=== PATIENT | female | born 2000 | race Caucasian/White ===

== ENCOUNTER 2024-12-10 10:05 | Outpatient (AMB) | payer OTHER, SELFPAY ==
--- NOTE | 2024-12-10 10:12 | A.OFFPC_ITS ---
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 Intake Note: New patient visit Combustion Engineer Required: No Allergies amoxicillin Allergy (Unknown, Verified 12/10/24 10:18) Hives cefprozil Allergy (Unknown, Verified 12/10/24 10:18) Hives Medication List - Last Reconciled 12/10/24 by Lanny Collins PA-C ondansetron mg PO topiramate mg PO Tobacco use date assessed: 12/10/24 Dental Screening Dental Screen Date: 12/10/24 Did you have a dental visit in the last 12 months?: Yes Did you have a dental problem in the last 6 months where you did not have access to dental care?: No Was dental information given to patient?: Patient has dentist HPI 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 neuro: She reports a history of chronic migraines, experiencing significant episodes over the past 11 years. The migraines are described as severe, with symptoms including sensitivity to light, sound, and smell, accompanied by stabbing pain, swishing in the ears, dizziness, nausea, and visual disturbances such as blurry vision. These symptoms have notably impacted her quality of life. The patient recently underwent an evaluation for Idiopathic Intracranial Hypertension (IIH) which included a spinal tap that returned negative results. However, the cerebrospinal fluid analysis was complicated by traumatic tap resulting in blood-tinged samples and displayed elevated protein levels and whi te blood cell counts. MRI and MRV indicated narrowing in the right venous sinuses and widening on the left but ruled out dural venous sinus thrombosis. Current treatment includes Topamax and Zofran as needed for nausea. The patient was evaluated for Multiple Sclerosis (MS) previously due to loss of vision in the left eye, but MRI results were negative. PULM: Additionally, the patient was diagnosed with sleep apnea and prescribed CPAP therapy, which began at the start of the current month. This diagnosis emerged after previous attempts to establish a link between sleep apnea and migraine occurrences. The patient reports consistent utilization of the CPAP machine. 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 psych: Furthermore, she has a history of major depressive disorder diagnosed three years prior, attributed to stressors but notes no current depressive symptoms. Health Maintenance - Bloodwork monitoring: Ordered comprehe nsive blood panel including CBC, liver function, kidney function, electrolytes, blood sugar, ferritin, iron profile, hemoglobin A1c, cholesterol, Lyme disease serology, magnesium, thyroid function tests, B12, folate, and urinalysis. - Continues with CPAP therapy for sleep apnea. - Referred to [facility] for s kin check due to presence of moles and history of skin yeast infection. - Routine dermatological evaluation for potential skin cancer risk given fair complexion and history of family cancer. Social History - Lives with parents. 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 - No smoking, alcohol, or substance use reported. Review of Systems - Neurological: Reports dizziness. - Gastrointestinal: Reports nausea. Physical Exam General: Well developed, well nourished, in no acute distress. Appears stated age. Cardiac: RRR, no murmurs Lungs: clear, equal breath sounds Abdomen: soft, nontender, no CVA tenderness Extremities: no edema Neuro: alert, oriented x3, mood appropriate. Noted history of migraines and vertigo-like dizziness. Plan - Continue with prescribed migraine jocelyn gement under neurology supervision. - Await further interpretation and commu nication of lumbar puncture results from neurology. - Continue CPAP usage with regular follo w-up to ensure efficacy for sleep apnea management. - Maintain follow-ups for management of iron deficiency anemia and monitor for any changes in symptoms or routine bloodwork evidence. - Follow up in six months for full physi galdino examination, with review of current laboratory results. - Referral made to [facility] for evaluation of skin moles and to ascertain appropriate dermatological care. - Maintain awareness for potential recur rence of depressive symptoms and intervene as needed. [facility] Medical History (Updated 12/10/24 @ 10:54 by Lanny Collins PA-C) History of depression Surgical History (Updated 12/10/24 @ 10:27 by Sweetie Gtz CMA) No pertinent past surgical history Family History (Updated 12/10/24 @ 10:21 by Sweetie Gtz CMA) Paternal Grandmother Breast cancer Maternal Grandmother Breast cancer Maternal Grandfather Lung cancer Social History (Updated 12/10/24 @ 10:20 by Sweetie Gtz CMA) Housing: House Alcohol intake: current Comment: rarely Patient Tobacco Use Status: Never used Tobacco e-Cigarette/Vaping Use: Never Used Second Hand Smoke Exposure: No service: No Current occupational status: employed 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 1. Little interest or pleasure in doing things: not at all 2. Feeling down, depressed, or hopeless: not at all 3. Trouble falling or staying asleep, or sleeping too much: not at all 4. Feeling tired or having little energy: not at all 5. Poor appetite or overeating: not at all 6. Feeling bad about yourself - or that you are a failure or have let yourself or your family down: not at all 7. Trouble concentrating on things, such as reading the newspaper or watching television: not at all 8. Moving or speaking so slowly that other people could have noticed. Or the opposite - being so fidgety or restless that you have been moving around a lot more than usual: not at all 9. Thoughts that you would be better off or of hurting yourself in some way: not at all Total score: 0 Depression Screening Interpretation: Negative Depression Screening Done: Yes 00872 - PHQ-9 Billing: Yes Source: Developed by Drs. Dylan Bonilla, Stacey Maradiaga, Reynaldo Correa and colleagues, with an educational myrna from [email or web address]. Thrive Questionnaire Date Thrive assessed: 12/07/24 I am a: Patient What is your living situation today?: I have a steady place to live Within the past 12 months, did the food you bought not last and you didn't have the money to get more?: Never true Within the past 12 months, did you worry whether your food would run out before you got money to buy more?: Never true Do you have trouble paying for medicines?: No Do you have trouble getting transportation to medical appointments?: No Do you have trouble paying your heating and electricity bill?: No Do you have trouble taking care of your child, family member or friend?: No Do you have trouble with day-to-day activities such as bathing, preparing meals, shopping, managing finances, etc.?: No Are you currently unemployed and looking for a job?: No Are you interested in more education?: No Please select the resources that you would like help with: None Currently or been in a relationship where the following occur: No concerns reported THRIVE Score: 0 AUDIT C Alcohol Use Questionnaire (AUDIT-C) 1. How often do you have a drink containing alcohol?: Monthly or less 2. How many drinks containing alcohol do you have on a typical day when you are drinking?: 1 or 2 3. How often do you have six or more drinks on one occasion?: Never Total Score: 1 Score Reviewed/Action Taken: Yes EDDA-7 AMB Questionnaire EDDA-7 Date EDDA - 7 assessed: 12/10/24 Feeling nervous, anxious, or on edge: 0 = Not at all Not being able to stop or control worryin = Not at all Worrying too much about different things: 0 = Not at all Trouble relaxin = Not at all Being so restless that it is hard to sit still: 0 = Not at all Becoming easily annoyed or irritable: 0 = Not at all Feeling afraid as if something awful might happen: 0 = Not at all Total EDDA-7 score (0-4 normal; 5-9 mild; 10-14 moderate; 15-21 severe): 0 Source: Developed by Drs. Dylan Bonilla, Stacey Maradiaga, Reynaldo Correa and colleagues, with an educational myrna from [email or web address]. EDDA-7 Assessment Billing EDDA-7 Assessment Tool: EDDA-7 Assessment 25809 Physical exam (Primary Care) Vital Signs: Last Vital Signs Pulse 89 12/10/24 10:21 Resp 16 12/10/24 10:21 BP 98/68 12/10/24 10:21 Pulse Ox 99 12/10/24 10:21 Oxygen Delivery Method Room Air 12/10/24 10:21 BMI result Body Mass Index 47.2 Tobacco/Smoking Status: Tobacco use Status Tobacco use date assessed 12/10/24 12/10/24 10:26 Patient Tobacco Use Status Never used Tobacco 12/10/24 10:26 e-Cigarette/Vaping Use Never Used 12/10/24 10:26 PHQ-9: PHQ-9 Score PHQ-9: Total score 0 12/10/24 10:47 Depression Screening Interpretation: Negative Thrive Assessment: Date of Thrive Assessment Date Thrive assessed 12/07/24 12/10/24 10:16 Currently or been in a relationship where the following occur: No concerns reported Coding Level of Care Code New Pt Level 4 (42254) Diagnoses Migraine G43.909 ROSE MARIE (iron deficiency anemia) D50.9 ALLISON on CPAP G47.33 Numerous moles D22.9 Additional Codes EDDA-7 Assessment Billing - EDDA-7 Assessment Tool: EDDA-7 Assessment 09010 ([id number]) PHQ-9 - 52328 - PHQ-9 Billing: Yes ([id number]) Assessment & Plan Assessment & Plan (1) Migraine: Code(s): G43.909 - Migraine, unspecified, not intractable, without status migrainosus Category: Medical (2) ROSE MARIE (iron deficiency anemia): Code(s): D50.9 - Iron deficiency anemia, unspecified Category: Medical (3) ALLISON on CPAP: Code(s): G47.33 - Obstructive sleep apnea (adult) (pediatric) Category: Medical (4) Numerous moles: Code(s): D22.9 - Melanocytic nevi, unspecified Category: Medical Plan: . Plan . Orders: Orders Complete Blood Count Auto Diff Today D50.9 - Iron deficiency anemia, unspecified, G43.909 - Migraine, unspecified, not intractable, without status migrainosus, G47.33 - Obstructive sleep apnea (adult) (pediatric) Comprehensive Soso. Panel Fast Today D50.9 - Iron deficiency anemia, unspecified, G43.909 - Migraine, unspecified, not intractable, without status migrainosus, G47.33 - Obstructive sleep apnea (adult) (pediatric) TSH reflex Free T4 Today D50.9 - Iron deficiency anemia, unspecified, G43.909 - Migraine, unspecified, not intractable, without status migrainosus, G47.33 - Obstructive sleep apnea (adult) (pediatric) Vitamin B12 and Folate Today D50.9 - Iron deficiency anemia, unspecified, G43.909 - Migraine, unspecified, not intractable, without status migrainosus, G47.33 - Obstructive sleep apnea (adult) (pediatric) IRON PROFILE Today D50.9 - Iron deficiency anemia, unspecified, G43.909 - Farhad dakota, unspecified, not intractable, without status migrainosus, G47.33 - Obstructive sleep apnea (adult) (pediatric) Ferritin Today D50.9 - Iron deficiency anemia, unspecified, G43.909 - Migraine, unspecified, not intractable, without status migrainosus, G47.33 - Obstructive sleep apnea (adult) (pediatric) Hemoglobin A1c Today R73.01 - Impaired fasting glucose Lipid Panel Today D50.9 - Iron deficiency anemia, unspecified, G43.909 - Migraine, unspecified, not intractable, without status migrainosus, G47.33 - Obstructive sleep apnea (adult) (pediatric) Magnesium Today D50.9 - Iron deficiency anemia, unspecified, G43.909 - Migraine, unspecified, not intractable, without status migrainosus, G47.33 - Obstructive sleep apnea (adult) (pediatric) Lyme IgG/IgM w/reflex to WB Today D50.9 - Iron deficiency anemia, unspecified, G43.909 - Migraine, unspecified, not intractable, without status migrainosus, G47.33 - Obstructive sleep apnea (adult) (pediatric) Microalbumin, Random (w Creat) Today D50.9 - Iron deficiency anemia, unspecifi ed, G43.909 - Migraine, unspecified, not intractable, without status migrainosus, G47.33 - Obstructive sleep apnea (adult) (pediatric) Referrals Dermatology Referral D22.9 - Melanocytic nevi, unspecified
[2024-12-10 10:21] VITALS: BP 98/68; PULSE 89; RESP 16; O2SAT 99; BMI 47.2
--- OUTSIDE RECORDS SUMMARY | 2024-12-10 11:38 | XMS_ITS | Continuity of Care Document ---
Author Organization [facility] Address [address] [facility] [facility], [address] Floor, [address] [place] [id number] Care Team Providers Care Instrument Checker Name Role Phone Lanny Gold B Primary Care Physician [phone] Encounter [facility] Date(s): 10/29/24 - 11/28/24 [facility] [address] [place] [address] [address] Floor, [address] [place] [id number] Encounter Type: Triage Allergies, Adverse Reactions, Alerts Substance Criticality Severity Reaction Reaction Severity Status amoxicillin hives Active Cefzil hives Active Seafood Active Latex Active Immunizations Given and Recorded Vaccine Date Status Refusal Reason SARS-CoV-2 (COVID-19) mRNA-1273 vaccine 11/03/20 R ecorded SARS-CoV-2 (COVID-19) mRNA-1273 vaccine 10/06/20 R ecorded Flu Vaccine 08/02/20 Recorded tetanus/diphtheria/pertussis, acel(Tdap) 05/16/20 Given Influenza Virus Vaccine (oldterm) 06/04/19 Recorde d meningococcal group B vaccine 1 10/31/18 Given meningococcal group B vaccine 2 05/13/18 Given influenza virus vaccine, inactivated 07/13/18 Bunny rded Meningococcal Conjugate Vaccine 3 03/20/16 Given Meningococcal Conjugate Vaccine 4 02/06/11 Given influenza virus vaccine, live 5 09/12/12 Given influenza virus vaccine, live 6 08/14/10 Given Hepatitis A Pediatric Vaccine 7 02/07/12 Given Hepatitis A Vaccine (oldterm) 8 02/06/11 Given Adacel (Tdap) (oldterm) 9 02/06/11 Given Influenza Live (intranasal) (oldterm) 07/28/09 Giv en Varicella Virus Vaccine 10 02/03/08 Given Varicella Virus Vaccine 11 01/30/01 Given Poliovirus Vaccine, Inactivated 12 12/29/04 Given Poliovirus Vaccine, Inactivated 13 00 Given Poliovirus Vaccine, Inactivated 14 00 Given Poliovirus Vaccine, Inactivated 15 00 Given Diphth/Pertussis,Acel/Tetanus (oldterm) 16 12/29/04 Given Diphth/Pertussis,Acel/Tetanus (oldterm) 17 04/28/01 Given Diphth/Pertussis,Acel/Tetanus (oldterm) 18 00 Given Diphth/Pertussis,Acel/Tetanus (oldterm) 19 00 Given Diphth/Pertussis,Acel/Tetanus (oldterm) 20 00 Given Measles/Mumps/Rubella Virus Vaccine 21 01/28/04 Gi andreia Measles/Mumps/Rubella Virus Vaccine 22 01/30/01 Gi andreia Haemophilus B Conj Vaccine (oldterm) 23 04/28/01 G iven Haemophilus B Conj Vaccine (oldterm) 24 00 G iven Haemophilus B Conj Vaccine (oldterm) 25 00 G iven Haemophilus B Conj Vaccine (oldterm) 26 00 G iven Prevnar Inj (oldterm) 27 01/30/01 Given Prevnar Inj (oldterm) 28 00 Given Prevnar Inj (oldterm) 29 00 Given Prevnar Inj (oldterm) 30 00 Given Hepatitis B Vaccine (old term) 31 00 Given Hepatitis B Vaccine (old term) 32 00 Given Hepatitis B Vaccine (old term) 33 00 Given 1Result Comment: [10/31/2018] Marina Vogel MA 2Result Comment: [05/13/2018] Dr. Moeller 3Result Comment: [03/20/2016] Nataliya Agee 4Admin Note: vis given 11/10/07 5Admin Note: private vis given 2011 screening questions negative 6Admin Note: VIS 05/23/10 FLUMIST 7Admin Note: vis given. 08/07/2011 8Admin Note: vis given 04/30/07 9Admin Note: vis given 04/24/06 10Admin Note: [facility] 11Admin Note: [facility] 12Admin Note: [facility] 13Admin Note: [facility] 14Admin Note: [facility] 15Admin Note: [facility] 16Admin Note: [facility] 17Admin Note: [facility] 18Admin Note: [facility] 19Admin Note: [facility] 20Admin Note: [facility] 21Admin Note: [facility] 22Admin Note: [facility] 23Admin Note: [facility] 24Admin Note: [facility] 25Admin Note: [facility] 26Admin Note: [facility] 27Admin Note: [facility] 28Admin Note: [facility] 29Admin Note: [facility] 30Admin Note: [facility] 31Admin Note: [facility] 32Admin Note: [facility] 33Admin Note: [facility] Medications eletriptan 40 mg oral tablet 1 tablet = 40 mg, By Mouth, Once, PRN for migraine headache, # 9 tablet, 3 Refills, Soft Stop, 09/18/23 4:07:00 PM EST, Tablet, [id number], Partial fill upon patient request if the prescription is for a schedule II opioid drug., 167, cm, 07/03/23 13:15:00 EDT, Height, 123, kg, 07/03/23 13:15:00 EDT, Dry Weight Start Date: 09/18/23 Status: Ordered Quantity: 9.0 Unit: tablet Repeat number: 4 EpiPen 2-Mathieu 0.3 mg injectable kit = 0.3 mg, Intramuscular, Once, 0 Refills, Maintenance, 02/12/22 9:46:00 AM EDT, Partial fill upon patient request if the prescription is for a schedule II opioid drug. Start Date: 02/12/22 Status: Ordered Repeat number: 1 hydrOXYzine hydrochloride 25 mg oral tablet TAKE 1 TABLET BY MOUTH 4X/DAY FOR 10 DAYS NEEDED FOR ANXIETY (15 TO 30 MINUTES PRIOR TO BEDTIME) Start Date: 11/29/22 Status: Ordered Repeat number: 1 ibuprofen 800 mg oral tablet 800 mg, 1, tablet, By Mouth, 3 times a day, PRN, # 30 tablet, Refills 0, Maintenance, for pain, 09/06/20 12:57:00 PM EST, Partial fill upon patient request Start Date: 09/06/20 Status: Ordered Quantity: 30.0 Unit: tablet Repeat number: 1 Liletta 52 mg intrauterine device 1 each = 52 mg, Once, 0 Refills, Maintenance, 02/14/24 11:18:00 AM EDT, Partial fill upon patient request if the prescription is for a schedule II opioid drug. Start Date: 02/14/24 Status: Ordered Repeat number: 1 ondansetron 4 mg oral tablet, disintegrating 1 tablet, By Mouth, Every 8 hours, PRN NEEDED FOR NAUSEA AND VOMITING, # 12 tablet, 2 Refills, Maintenance, 07/30/24 11:36:00 AM EDT, [id number], 167, cm, 07/30/24 10:43:00 EDT, Height, 125.8, kg, 07/30/24 10:43:00 EDT, Dry Weight Start Date: 07/30/24 Status: Ordered Quantity: 12.0 Unit: tablet Repeat number: 3 phentermine 15 mg oral capsule 0 Refills, Maintenance, 02/06/24 10:02:00 AM EDT, Partial fill upon patient request if the prescription is for a schedule II opioid drug. Start Date: 02/06/24 Status: Ordered Repeat number: 1 topiramate 25 mg oral tablet See Instructions, Take 1 tablet By Mouth Daily at bedtime for 1 week, then 1 tablet By Mouth twice daily for 1 week, then 1 tablet By Mouth Daily in the morning and 2 at bedtime for 1 week, then 2 tablets By Mouth twice daily, # 120 tablet, 0 Refills, Maintenance, 07/30/24 4:46:00 PM EDT, [facility] #[id number], Partial fill upon patient request if the prescription is for a schedule II opioid drug., 167, cm, 07/30/24 10:43:00 EDT, Height, 125.8, kg, 07/30/24 10:43:00 EDT, Dry Weight Start Date: 07/30/24 Status: Ordered Quantity: 120.0 Unit: tablet Repeat number: 1 topiramate 50 mg oral tablet 1 tablet = 50 mg, By Mouth, 2 times a day, # 60 tablet, 5 Refills, Maintenance, 08/31/24 8:06:00 PMEST, Tablet, [facility] #[id number], Partial fill upon patient request if the prescription is for a schedule II opioid drug., 167, cm, 07/30/24 10:43:00 EDT, Height, 125.8, kg, 07/30/24 10:43:00 EDT, DryWeight Start Date: 08/31/24 Status: Ordered Quantity: 60.0 Unit: tablet Repeat number: 6 topiramate 50 mg oral tablet 0 Refills, Maintenance, 02/06/24 10:02:00 AM EDT, Partial fill upon patient request if the prescription is for a schedule II opioid drug. Start Date: 02/06/24 Status: Ordered Repeat number: 1 Wegovy (1 mg dose) subcutaneous solution 0 Refills, Maintenance, 07/30/24 10:53:00 AM EDT, Partial fill upon patient request if the prescription is for a schedule II opioid drug. Start Date: 07/30/24 Status: Ordered Repeat number: 1 Problem List Condition Confirmation Course Effective Dates Status Health St atus Informant Chronic headache Confirmed Active Concussion Confirmed 08/14/18 Active BMI, pediatric > 99% for age Confirmed Active Severe obesity Confirmed Active Social History Social History Type Response Smoking Status Never (less than 100 in lifetime) entered on: 05/20/21 Sex Sex Representation Female (finding) Patient Care team information Care Team Personnel Name: Marina Moeller MD Position: [facility] Physician - Pediatrics Member Role: Lifetime Consulting Physician Address: [address] [facility] [place] [address]- Telecom: Name: Leonel Nichols MD Position: [facility] Physician - Pediatrics Member Role: Lifetime Consulting Physician Address: [address] [facility] [place], [place] [address] Telecom: Name: Hansel MCGUIRE, Kristal Position: [facility] RN Member Role: Primary Care Nurse Name: Dennis PA, Lanny Schmidt Position: Reference Physician Member Role: PCP Address: [address] [place], [place] [address] Telecom: Name: Erma VARGAS, Raheem Medina Position: [facility] PCO Associate Professional Member Role: Lifetime Consulting Provider Address: [address] [facility] [place] [address] [place] Telecom: Care Team Related Persons Name: PADMINI PANG Name: JOSUE GRANADOS Name: TEO GRANADOS Name: ELEANOR GRANADOS Name: JUDY GRANADOS Insurance Providers Guarantor name: BARRY GRANADOS Health Plan Information #: 1 Payer: [employer] NON HMO PLANS Member Number: NA Policy Number: NA Group Number: NA
--- OUTSIDE RECORDS SUMMARY | 2024-12-10 11:38 | XMS_ITS | Continuity of Care Document ---
Author Organization [facility] ter Address [address] [place] [phone]- Care Team Providers Care Pump Servicer Helper Name Role Phone Lanny Gold Primary Care Physician Encounter [facility] Date(s): 12/01/24 - 12/01/[address] [address] Discharge Disposition: A-D/C Home Attending Physician: Eli Bryant MD Admitting Physician: Eli Bryant MD Referring Physician: Eli Bryant MD Encounter Type: Disch Daystay Allergies, Adverse Reactions, Alerts Substance Criticality Severity Reaction Reaction Severity Status amoxicillin hives Active Seafood Active Latex Active Cefzil hives Active Immunizations Given and Recorded Vaccine Date [...] given 04/24/06 10Admin Note: [facility] 11Admin Note: [facility] 12Admin Note: [facility] 13Admin Note: [facility] 14Admin Note: [facility] 15Admin Note: [facility] 16Admin Note: [facility] 17Admin Note: [facility] 18Admin Note: [facility] 19Admin Note: [facility] 20Admin Note: [facility] 21Admin Note: [facility] 22Admin Note: [facility] 23Admin Note: [facility] 24Admin Note: [facility] 25Admin Note: [facility] 26Admin Note: [facility] 27Admin Note: [facility] 28Admin Note: [facility] 29Admin Note: [facility] 30Admin Note: [facility] 31Admin Note: [facility] 32Admin Note: [facility] 33Admin Note: [facility] Medications eletriptan 40 mg oral tablet 1 tablet = 40 mg, By Mouth, Once, PRN for migraine headache, # 9 tablet, 3 Refills, Soft Stop, 09/18/23 4:07:00 PM EST, Tablet, [facility]/pharmacy #[id number], Partial fill upon patient request if [...] 2 Refills, Maintenance, 07/30/24 11:36:00 AM EDT, [facility]/pharmacy #[id number], 167, cm, 07/30/24 10:43:00 EDT, Height, [...] 0 Refills, Maintenance, 07/30/24 4:46:00 PM EDT, [facility]/pharmacy #[id number], Partial fill upon patient request if [...] 5 Refills, Maintenance, 08/31/24 8:06:00 PMEST, Tablet, [facility]/pharmacy #[id number], Partial fill upon patient request if [...] age Confirmed Active Severe obesity Confirmed Active Results Orders for Microbiology Reports Name Date Stat Gram Smear (STAT GRAM SMEAR) 5 Microbiology Reports TEST:Stat Gram Smear STATUS:Auth (Verified) BODY SITE: SOURCE:CEREBR COLLECTED DATE/TIME:12/01/24 11:08 AM Stat Gram Smear SPECIMEN DESCRIPTION : CEREBROSPINAL FLUID SPECIAL REQUESTS : NONE GRAM STAIN : 3+ RBC'S NO WBC'S SEEN NO ORGANISMS SEEN REPORT STATUS : FINAL 12/01/2024 Radiology Reports * Exam Date Time Procedure Performing Provider Status 12/01/24 2:43 PM XR Lumbar Puncture Diagnostic Estefania Stone; Auth (Verified) Notes: (XR Lumbar Puncture Diagnostic) Reason For Exam: benign intracranial hypertension RESULT: XR Lumbar Puncture Diagnostic Procedure: Fluoroscopic guided lumbar puncture. History:Reason: benign intracranial hypertension; Special Instructions: please obtain opening and closing pressure please obtain opening and closing pressure FLUOROSCOPY TIME: 0.6 minutes EXPOSURE: 103.9 uGy*m^2 (Dose Area Product) Description of procedure: Informed consent was obtained from the patient. A timeout was performed prior to the procedure according to protocol. Sterile technique was used throughout the procedure. 1% lidocaine was used for skin analgesia. A 20 gauge needle was advanced towards the spinal canal in the lower lumbar spine directed at the L3-L4 level using a posterior approach. No spinal fluid returned. Access L2-L3 was then attempted which returned pink blood-tinged fluid which remained so throughout sample collection. Opening pressure was measured at 15 centimeters of water, the length of the needle to the hub, with upward tilting of the head of the table required for sample extraction beyond the needle hub. Subsequently, approximately 9 cc fluid was drained before the patient complainedof headache and the procedure was terminated. Closing pressure measured less than 15 cm of water. Specimens were sent for requested laboratory studies. The needle was subsequently removed. There wereno immediate complications. Impression: Fluoroscopic guided lumbar puncture returning persistently blood-tinged fluid. Opening pressure measured 15 centimeters of water. Closing pressure measured less than 15 cm of water (the length of the needle to the hub). By undersigning this report the attending radiologist acknowledges that he/she has read the report,reviewed the images, and agrees with the findings. I have personally reviewed the images and I agree with this report. WSN: [id number] Ordering Physician: Eli Bryant Dictated By: Abdullahi Martinez Dictated Date/Time: 12/01/24 4:11 pm Reviewed By: Fabian Nichols MD Signed By: Fabian Nichols MD Signed Date/Time: 12/01/24 4:16 pm Transcribed By: ABHAY Transcribed Date/Time: 12/01/24 2:40 pm Vital Signs Most recent to oldest [Reference Range]: 1 Height 167 cm (12/01/24 11:09 AM) Weight 122.5 kg (12/01/24 11:09 AM) Oxygen Saturation [94-100 %] 99 % (12/01/24 11:15 AM) Pulse Rate [55-90 bpm] 81 bpm (12/01/24 11:15 AM) Blood Pressure [90-138/55-84 mm Hg] 119/ 50mm Hg (12/01/24 11:15 AM) Respiratory Rate [16-30 br/min] 20 br/mi n (12/01/24 11:15 AM) Temperature [96.8-100.4 DegF] 98.1 DegF (12/01/24 11:15 AM) Mode of Delivery (Oxygen) Room air (12/01/24 11:15 AM) Blood pressure sites Arm, left (12/01/24 11:15 AM) Temperature Route Oral (12/01/24 11:15 AM) Dry Weight 122.5 kg (12/01/24 11:09 AM) Social History Social History Type Response Smoking Status Never (less than 100 in lifetime) entered on: 05/20/21 Sex Sex Representation Female (finding) Hospital Progress note * Yuridia MCGUIRE, Shawn: SIGN Shawn Shi RN: SIGN, MODIFY Shawn Shi RN: MODIFY, SIGN, VERIFY Event Display: Progress Note Hospital Authored Date: [id number] Patient: BARRY GRANADOS Age: 24 years Sex: Female : 2000 Associated Diagnoses: None Author: Katerin Radford RN Findings Nursing Data Vital Signs : VITAL SIGNS SECTION 12/01/2024 11:15 EST Temperature 98.1 DegF Temperature Route Oral Pulse Rate 81 bpm Respiratory Rate 20 br/min Systolic Blood Pressure 119 mm Hg Diastolic Blood Pressure 50 mm Hg L Blood pressure sites Arm, left Mean Arterial Pressure 73 mm Hg Pulse Pressure 69 mm Hg Oxygen Saturation 99 % Mode of Delivery (Oxygen) Room air . Narrative/Incidental Patient arrived on unit at 1130 patient shows no signs of acute distress. Call haji within reach . * Shawn Shi RN: PERFORM Event Display: Progress Note Hospital Authored Date: [id number] Returned from procedure. VSS. 2 bandaids to lower back CDI. No signs or symptoms of bleeding or hematoma. Will continue to monitor. Note * Katerin Radford RN: PERFORM Event Display: Discharge/Transfer Note Hospital Authored Date: [id number] Nursing Discharge Note Entered On: 12/01/2024 16:34 EST Performed On: 12/01/2024 16:34 EST by Katerin Radford RN Nursing Discharge Note 2 Discharge Time : 12/01/2024 16:34 EST Discharge Level of Care at Discharge : Home/Assisted/Foster Care Patient Left Unit Via : Ambulatory Patient Accompanied Off Unit with : Significant other DC Instructions Provided & Signed by Pt : Yes Patient Understands D/C Instructions : Yes Patient Instructions Discharge Signed : Yes Did Pt have Specialty Bed or Wound Vac : No Katerin Radford RN - 12/01/2024 16:34 EST Patient Care team information Care Team Personnel Name: Marina Moeller MD Position: [facility] Physician - Pediatrics Member Role: Lifetime Consulting Physician Address: [address] [facility] [place], [place] [address] Telecom: Name: Leonel Nichols MD Position: [facility] Physician - Pediatrics Member Role: Lifetime Consulting Physician Address: [address] [place] [address] Pediatric [place], [place] [facility] Telecom: Name: Kristal Hamm RN Position: [facility] RN Member Role: Primary Care Nurse Name: Lanny Gold Position: Reference Physician Member Role: PCP Address: [address] [place] [id number] [facility] Telecom: Name: Raheem Ritchie NP Position: [facility] PCO Associate Professional Member Role: Lifetime Consulting Provider Address: [address] [place] [address] Pedi Services [place], [place] [address] Telecom: Care Team Related Persons Name: PADMINI PANG Name: JOSUE GRANADOS Name: TEO GRANADOS Name: ELEANOR GRANADOS Name: JUDY GRANADOS Insurance Providers Guarantor name: BARRY GRANADOS Health Plan Information #: 4 Payer: [facility] Member Number: [id number] Policy Number: NA Group Number: Health Plan Information #: 3 Payer: [employer] Member Number: [id number] Policy Number: NA Group Number: [id number] Health Plan Information #: 1 Payer: [employer] Member Number: [id number] Policy Number: NA Group Number: [id number] Health Plan Information #: 2 Payer: [employer] NON [employer] Member Number: [id number] Policy Number: NA Group Number: [id number]
--- OUTSIDE RECORDS SUMMARY | 2024-12-10 11:38 | XMS_ITS | Encounter Summary ---
Author Organization [facility] Address [address] [place] [address] Care Team Providers Care Airport Operations Specialist Name Role Phone Yvette Mccrary MD Primary Care Provider Reason for Visit * Reason Comments Rash chest Encounter Details Date Type Department Care Team ([facility] st Contact Info) Description 11/23/2024 5:15 PM EST Office Visit [facility] [id number] [place] [phone] Anaid Laura, ALICIA [address], [place] [phone] Tinea (Primary Dx) Social History Tobacco Use Types Packs/Day Years Used Date Smoking Tobacco: Never Smokeless Tobacco: Never Alcohol Use Standard Drinks/Week Comments Not Currently 0 (1 standard drink = 0.6 oz pur e alcohol) Comments Unknown Sex and Gender Information Value Date Recorded Sex Assigned at Not on file Legal Sex Female 8:03 PM EDT Gender Identity Not on file Sexual Orientation Not on file documented as of this encounter Last Filed Vital Signs Vital Sign Reading Time Taken Comments Blood Pressure - - Pulse 96 11/23/2024 5:05 PM EST Temperature 36.4 ??C (97.6 ??F) 11/23/2024 5:05 PM ES T Respiratory Rate - - Oxygen Saturation 99% 11/23/2024 5:05 PM EST Inhaled Oxygen Concentration - - Weight - - Height - - Body Mass Index - - documented in this encounter Ordered Prescriptions Prescription Sig Dispense Quantity Refills Last Filled Start Date End Date fluconazole (DIFLUCAN) 150 mg tablet Take 1 tablet (150 mg total) by mouth See administration instructions for 1 day. Take one tab now. Repeat in 7 days if symptoms persist. 2 tablet 5 11/24/19 clotrimazole (LOTRIMIN) 1 % cream Apply topically 2 (two) times a day for 15 days. 30 g 2 5 12/08/19 documented in this encounter Progress Notes * Anaid Laura NP - 11/23/2024 5:15 PM EST CHIEF COMPLAINT: Rash (chest) HPI: Maranda Cano is a 24 y.o. old female who presents for evaluation of rash left upper chest wall has been using steroid cream which has made rash worse ROS: Remainder of the 12 point review of symptoms unremarkable except for those idenitified in the HPI. PAST MEDICAL HISTORY: There are no active problems to display for this patient. Past Surgical History: Procedure Laterality Date TONSILLECTOMY ADENOIDECTOMY, BILATERAL MYRINGOTOMY AND TUBES PROCEDURE: [place] TONSILLECTOMY & ADENOIDECTOMY <AGE 12 SOCIAL HISTORY: Social History Tobacco Use Smoking status: Never Smokeless tobacco: Never Substance Use Topics Alcohol use: Not Currently FAMILY HISTORY: Family History Problem Relation Name Age of Onset Obesity Mother Obesity Father Hypertension Father Breast cancer Maternal Grandmother Lung cancer Maternal Grandfather Kidney cancer Maternal Grandfather Breast cancer Paternal Grandmother Family Status Relation Name Status Mother Alive Father Alive MGM MGF PGM Alive Brother Jimi Alive Brother Fernando Alive PGF No partnership data on file MEDICATIONS DISCONTINUED/REORDERED: There are no discontinued medications. ACTIVE MEDICATIONS: No outpatient medications have been marked as taking for the 11/23/24 encounter (Office Visit) with Anaid Laura NP. ALLERGIES: Allergies Allergen Reactions Other Anaphylaxis seafood Amoxicillin Other Reaction(s): Hives/Urticaria Cefprozil Other Reaction(s): Hives/Urticaria PHYSICAL EXAM: Vitals: 11/23/24 1705 Pulse: 96 Temp: 36.4 ??C (97.6 ??F) SpO2: 99% CONSTITUTIONAL: alert, calm, cooperative, in no acute distress SKIN: warm and dry red-based fungal rash irregular border left upper chest wall HEART: S1, S2 normal, regular rate and rhythm, no murmurs, rubs, gallops LUNGS: clear to auscultation bilaterally, no wheezes, rales, rhonchi PSYCH: mood/affect full range, speech clear, good eye contact, cooperative with exam LABS/IMAGING: IMPRESSION: Tinea PLAN: The patient's PMH, problem list and medications were reviewed in reference to the above diagnosis/diagnoses. Diflucan sent to pharmacy patient to use Lotrimin cream intermittently if symptoms persist or worsen Advised to follow up with PCP if symptoms do not improve. Advised to follow up with UC or PCP immediately for new or worsening symptoms. Educated on red flags symptoms. Advised to go to the ER or call 911 for these symptoms. Patient understands the plan. Patient verbalizes agreement with the plan. No orders of the defined types were placed in this encounter. Anaid Laura NP on 11/23/2024 at 5:29 PM EST Today's documentation was made using voice recognition software. This note may contain grammatical errors secondary to this software. documented in this encounter Plan of Treatment Not on file documented as of this encounter Visit Diagnoses Diagnosis Tinea- Primary Dermatophytosis of unspecified site documented in this encounter Care Teams Airport Operations Specialist Relationship Specialty Start Date End Date Yvette Mccrary MD [address] [place] [id number] PCP - General 01/10/23 documented as of this encounter
--- OUTSIDE RECORDS SUMMARY | 2024-12-10 11:39 | XMS_ITS | Encounter Summary ---
Author Organization [facility] Address [address] [place] [phone] Phone Care Team Providers Care Funds Transfer Clerk Name Role Phone Unavailable Primary Care Provider Unavailabl e Encounter Details Date Type Department Care Team ([facility] st Contact Info) Description 03/02/2018 Conversion Encounter [facility] [address] [address] Social History Tobacco Use Types Packs/Day Years Used Date Smoking Tobacco: Never Assessed Comments Unknown Sex and Gender Information Value Date Recorded Sex Assigned at Not on file Legal Sex Female 6:27 PM EDT Gender Identity Not on file Sexual Orientation Not on file documented as of this encounter Plan of Treatment Not on file documented as of this encounter Visit Diagnoses Not on filedocumented in this encounter
--- OUTSIDE RECORDS SUMMARY | 2024-12-10 11:39 | XMS_ITS | Clinical Summary ---
Author Organization [address] [place] [address] [place] [phone] Phone Care Team Providers Care Ocean Lifeguard Specialist Name Role Phone Yvette Mccrary MD Primary Care Provider Allergies Active Allergy Reactions Criticality Noted Date Comments Amoxicillin 05/24/2023 Other Reaction(s): Hives/Urticaria Cefprozil 05/24/2023 Other Reaction(s): Hives/Urticaria Other Anaphylaxis High 05/24/2023 seafood Medications predniSONE (DELTASONE) 20 mg tablet Take 3 tablets by mouth on day 1-2, take 2 tablets by mouth on day 3-4, take 1 tablet by mouth on days 5-6. Take with food in the morning. 024 Active albuterol HFA (PROAIR HFA ; PROVENTIL HFA ; VENTOLIN HFA) 90 mcg/actuation inhaler Inhale 2 Puffs into the lungs 4 times daily as needed for Cough or Wheezing. 024 Active fluticasone-salm eterol (ADVAIR DISKUS) 250-50 mcg/dose diskus inhaler Inhale 1 Inhaler into the lungs 2 times daily. 024 Active EPINEPHrine (EpiPen 2-Mathieu) 0.3 mg/0.3 mL injection Inject 0.3 mg into the muscle as needed for Other (anaphylactic reaction). 2-pack. Fill with whichever brand is covered by insurance. 023 Active erenumab-aooe (Aimovig Autoinjector) 140 mg/mL injection Inject into the skin. For migraine 023 Active ondansetron (ZOFRAN) 4 mg tablet Take 1 Tablet by mouth every 8 hours as needed for Nausea. Associated with migraines 023 Active medical supply, miscellaneous (MISCELLANEOUS MEDICAL SUPPLY MISC) IUD'S IU by Intrauterine route. Active azelastine (ASTELIN) 137 mcg (0.1 %) nasal spray ADMINISTER 1 SPRAY INTO EACH NOSTRIL 2 TIMES A DAY. 30 mL 025 Active azelastine (ASTELIN) 137 mcg (0.1 %) nasal spray Administer 1 spray into each nostril 2 (two) times a day. 30 mL 025 2024 Discontinued clotrimazole (LOTRIMIN) 1 % cream Apply topically 2 (two) times a day for 15 days. 30 g 2 025 2024 fluconazole (DIFLUCAN) 150 mg tablet Take 1 tablet (150 mg total) by mouth See administration instructions for 1 day. Take one tab now. Repeat in 7 days if symptoms persist. 2 tablet 025 2024 Active Problems No known active problems Encounters Date Type Department Care Team Description 11/23/2024 5:15 PM EST Office Visit Walk-In [address] [phone] Anaid Laura NP Tinea (Primary Dx) 10/16/2024 1:15 PM EST [facility] [address] [phone] Chico Mota, HOME VISITOR Symptoms of upper respiratory infection (URI) (Primary Dx) from Last 3 Months Surgical History Surgery Date Site/Laterality Comments TONSILLECTOMY ADENOIDECTOMY, BILATERAL MYRINGOTOMY AND TUBES PROCEDURE: [place] TONSILLECTOMY & ADENOIDECTOMY <AGE 12 Medical History Medical History Date Comments Migraine DX:Migraine Spondylolisthesis at L4-L5 level DX:Spondylolisthesis at L4-L5 level History of multiple concussions DX:History of multiple concussions Family History Medical History Relation Name Comments Hypertension Father Obesity Father Kidney cancer Maternal Grandfather Lung cancer Maternal Grandfather Breast cancer Maternal Grandmother Obesity Mother Breast cancer Paternal Grandmother Relation Name Status Comments Brother 1 Jimi Alive Brother 2 Fernando Alive Father Alive Maternal Grandfather Maternal Grandmother Mother Alive Paternal Grandfather Paternal Grandmother Alive Social History Tobacco Use Types Packs/Day Years Used Date Smoking Tobacco: Never Smokeless Tobacco: Never Tobacco Cessation:Counseling Given: Not Answered Alcohol Use Standard Drinks/Week Comments Not Currently 0 (1 standard drink = 0.6 oz pur e alcohol) Comments Unknown Sex and Gender Information Value Date Recorded Sex Assigned at Not on file Legal Sex Female 8:03 PM EDT Gender Identity Not on file Sexual Orientation Not on file Obstetrics History Last Filed Vital Signs Vital Sign Reading Time Taken Comments Blood Pressure 124/90 10/16/2024 1:00 PM EST Pulse 96 11/23/2024 5:05 PM EST Temperature 36.4 ??C (97.6 ??F) 11/23/2024 5:05 PM ES T Respiratory Rate - - Oxygen Saturation 99% 11/23/2024 5:05 PM EST Inhaled Oxygen Concentration - - Weight 132 kg (291 lb 6.4 oz) 04/28/2024 8:20 AM EDT Height 166.4 cm (5' 5.5 ) 04/28/2024 8:20 AM EDT Body Mass Index 47.75 04/28/2024 8:20 AM EDT Plan of Treatment Health Maintenance Due Date Last Done Comments Gonorrhea/Chlamydia Screening 2000 Pneumococcal Vaccine: Pediatrics (0 to 5 Years) and At-Risk Patients (6 to 64 Years) (1 of 1 - PPSV23) 01/24/2006 01/30/2001, 2000, 2000, Additional history exists Hepatitis A Vaccines (2 of 2 - 2-dose series) 08/08/2011 02/06/2011 HPV Vaccines (1 - 3-dose series) 01/24/2015 Cervical Cancer Screening: Pap Smear 01/24/2021 Depression Screening 03/31/2023 HIV Screening 03/31/2023 Hepatitis C Screening 03/31/2023 Social Influencers of Health Screening 03/31/2023 COVID-19 Vaccine ( season) 2024 08/19/2021, 11/03/2020, 10/06/2020 Influenza Vaccine (#1) 2024 2, 08/02/2021, 08/02/2020, Additional history exists Cholesterol Screening (Lipid Panel) 06/04/2028 06/04/2023 DTaP,Tdap,and Td Vaccines (8 - Td or Tdap) 05/16/2030 05/16/2020, 02/06/2011, 12/29/2004, Additional history exists Hepatitis B Vaccines Completed 2000, 2000, 2000 HIB Vaccines Completed 04/28/2001, 07/14, 2000, Additional history exists MMR Vaccines Completed 01/28/2004, 01/30/2001 IPV Vaccines Completed 12/29/2004, 10/15, 2000, Additional history exists Varicella Vaccines Completed 02/03/2008, 01/30/2001 Meningococcal ACWY Vaccine Completed 03/20/2016, Meningococcal B Vacine Aged Out No lo nger eligible based on patient's age to complete this topic RSV Immunization Patients Under 20 months Aged Out No longer eligible based on patient's age to complete this topic Procedures Procedure Name Priority Date/Time Associated Diagnosis Comments POC RESPIRATORY SYNCYTIAL VIRUS Routine 10/16/2024 2:01 PM EST Symptoms of upper respiratory infection (URI) POC RAPID [id number], MOLECULAR Routine 10/16/2024 2:01 PM EST Symptoms of upper respiratory infection (URI) LIPID PANEL Routine 06/04/2023 from Last 3 Months or Most Recently Relevant to Health Maintenance Results * Poc Rapid [id number], MOLECULAR (10/16/2024 2:01 PM EST) COVID-19/SARS- COV-2 Rapid POC Negative Negative Swab Nasopharyngeal structure / Unknown 10/16/2024 2:01 PM EST Chico Mota NP POINT OF CARE TEST ENTER/EDIT ORDERABLES Final Result * POC respiratory syncytial virus manually resulted (10/16/2024 2:01 PM EST) Pathologist [facility] RSV Rapid AG POC Negative Negative Swab Nasopharyngeal structure / Unknown 10/16/2024 2:01 PM EST Chico Mota NP POINT OF CARE TEST ENTER/EDIT ORDERABLES Final Result * Lipid panel (06/04/2023) LDL/HDL Ratio 3 0 - 4 Triglycerides 61 0 - 150 mg/dL Cholesterol 136 0 - 200 mg/dL HDL 41 >=40 mg/dL LDL Cholesterol 83 0 - 100 mg/dL Blood Venous blood specimen / Unknown Historical Provider LAB BLOOD ORDERABLES Mary l Result from Last 3 Months or Most Recently Relevant to Health Maintenance Insurance [employer] Care Teams Ocean Lifeguard Specialist Relationship Specialty Start Date End Date Yvette Mccrary MD [address] [place] [id number] PCP - General 01/10/23
--- OUTSIDE RECORDS SUMMARY | 2024-12-10 11:39 | XMS_ITS | Continuity of Care Document ---
Author Organization [facility] Address [address] [place] [address], [address] d Floor, [address] [place] [address]- Care Team Providers Care Lime Spreader Name Role Phone Hermann NAQVI, Yvette Bragg Primary Care Physician Encounter [facility] Date(s): 11/06/24 - 12/06/24 [facility] [address] [place] [address] 3rd Floor, [address] [place] [id number] Encounter Type: Triage Allergies, Adverse Reactions, Alerts Substance Criticality Severity Reaction Reaction Severity Status amoxicillin hives Active Latex Active Seafood Active Cefzil hives Active Immunizations Given and [...] given 04/24/06 10Admin Note: [facility] 11Admin Note: [facility] 12Admin Note: [facility] 13Admin Note: [facility] 14Admin Note[facility] 15Admin Note: [facility] 16Admin Note: [facility] 17Admin Note: [facility] 18Admin Note: [facility] 19Admin Note[facility] 20Admin Note: [facility] 21Admin Note: [facility] 22Admin Note: [facility] 23Admin Note[facility] 24Admin Note[facility] 25Admin Note: [facility] 26Admin Note: [facility] 27Admin Note: [facility] 28Admin Note[facility] 29Admin Note: [facility] 30Admin Note[facility] 31Admin Note[facility] 32Admin Note: [facility] 33Admin Note: [facility] Medications eletriptan 40 mg oral tablet 1 tablet = 40 mg, By Mouth, Once, PRN for migraine headache, # 9 tablet, 3 Refills, Soft Stop, 09/18/23 4:07:00 PM EST, Tablet, [id number], Partial fill upon patient request if [...] 2 Refills, Maintenance, 07/30/24 11:36:00 AM EDT, [id number], 167, cm, 07/30/24 10:43:00 EDT, Height, [...] 0 Refills, Maintenance, 07/30/24 4:46:00 PM EDT, [facility]/pharmacy #[id number], Partial fill upon patient request if [...] 5 Refills, Maintenance, 08/31/24 8:06:00 PMEST, Tablet, [facility]/pharmacy #[id number], Partial fill upon patient request if [...] Team Personnel Name: Marina Moeller MD Position: [facility] Physician - Pediatrics Member Role: Lifetime Consulting Physician Address: [address] [facility] [place] [address]- [place] [employer]: Name: Leonel Nichols MD Position: [facility] Physician - Pediatrics Member Role: Lifetime Consulting Physician Address: [address] [facility] [place] [address]- [place] [employer]: Name: Kristal Hamm RN Position: [facility] RN Member Role: Primary Care Nurse Name: Raheem Ritchie NP Position: [facility] PCO Associate Professional Member Role: Lifetime Consulting Provider Address: [address] [facility] [place] [address]- [place] [employer]: Name: Yvette Mccrary MD Position: [facility] Outreach Member Role: PCP Address: [address] [place] [address]- [place] [employer]: Care Team Related Persons Name: PADMINI PANG Name: JOSUE GRANADOS Name: JULIET GRANADOS Name: ELEANOR GRANADOS Name: JUDY GRANADOS Insurance Providers Guarantor name: BARRY GRANADOS Health Plan Information #: 1 Payer: AETNA NON HMO PLANS Member Number: NA Policy Number: NA Group Number: NA Health Plan Information #: 2 Payer: [employer]ET[employer] HMO PRODUCTS Member Number: NA Policy Number: NA Group Number: NA Health Plan Information #: 3 P[place]: [place] Member Number: NA Policy Number: NA Group Number: NA
--- OUTSIDE RECORDS SUMMARY | 2024-12-10 11:39 | XMS_ITS | Continuity of Care Document ---
Author Organization [facility] Address [address] [place] [address], 3r d Floor, [address] [place] [address]- Care Team Providers Care Terminal Computer Operator Name Role Phone Dennis DOMINIQUE, Lanny B Primary Care Physician Encounter [facility] Date(s): 08/01/24 - 11/29/24 [facility] [address] [place] [address] 3rd Floor, [address] [place] [id number] Attending Physician: Massiel Carmona NP Admitting Physician: Massiel Carmona NP Encounter Type: Pre-OutPatient One Time Allergies, Adverse Reactions, Alerts Substance Criticality Severity Reaction Reaction Severity Status amoxicillin hives Active Cefzil hives Active Latex Active Seafood Active Immunizations Given and Recorded Vaccine Date Status Refusal Reason SARS-CoV-2 (COVID-19) mRNA-1273 vaccine 11/03/20 R ecorded SARS-CoV-2 (COVID-19) mRNA-1273 vaccine 10/06/20 R ecorded Flu Vaccine 08/02/20 Recorded tetanus/diphtheria/pertussis, acel(Tdap) 05/16/20 Given Influenza Virus Vaccine (oldterm) 8/22/19 Recorde d meningococcal group B vaccine 1 [...] 10Admin Note: [facility] 11Admin Note: [facility] 12Admin Note[facility] 13Admin Note: [facility] 14Admin Note: [facility] 15Admin Note: [facility] 16Admin Note: [facility] 17Admin Note: [facility] 18Admin Note: [facility] 19Admin Note: [facility] 20Admin Note: [facility] 21Admin Note: [facility] 22Admin Note[facility] 23Admin Note: [facility] 24Admin Note: [facility] 25Admin Note: [facility] 26Admin Note[facility] 27Admin Note: [facility] 28Admin Note[facility] 29Admin Note: [facility] 30Admin Note: [facility] 31Admin Note: [facility] 32Admin Note: [facility] 33Admin Note: [facility] Medications eletriptan 40 mg oral tablet 1 tablet = 40 mg, By Mouth, Once, PRN for migraine headache, # 9 tablet, 3 Refills, Soft Stop, 09/18/23 4:07:00 PM EST, Tablet, [facility]/pharmacy #[id number], Partial fill upon patient request [...] 2 Refills, Maintenance, 07/30/24 11:36:00 AM EDT, [facility]/pharmacy #[id number], 167, cm, 07/30/24 10:43:00 EDT, [...] 0 Refills, Maintenance, 07/30/24 4:46:00 PM EDT, [facility]/pharmacy #[id number], Partial fill upon patient request [...] 5 Refills, Maintenance, 08/31/24 8:06:00 PMEST, Tablet, [facility]/pharmacy #[id number], Partial fill upon patient request [...] Team Personnel Name: Marina Moeller MD Position: [facility] Physician - Pediatrics Member Role: Lifetime Consulting Physician Address: [address] [facility] [place] [address]- [place] [employer]: Name: Leonel Nichols MD Position: [facility] Physician - Pediatrics Member Role: Lifetime Consulting Physician Address: [address] [facility] [place] [address]- [place] [employer]: Name: Kristal Hamm RN Position: [facility] RN Member Role: Primary Care Nurse Name: Lanny Gold Position: Reference Physician Member Role: PCP Address: [address] [place] [address]- [place] [employer]: Name: Raheem Ritchie NP Position: [facility] PCO Associate Professional Member Role: Lifetime Consulting Provider Address: [address] [facility], [place] [address]- [place] [employer]: Care Team Related Persons Name: PADMINI PANG Name: JOSUE GRANADOS Name: TEO GRANADOS Name: ELEANOR GRANADOS Name: JUDY GRANADOS Insurance Providers Guarantor name: BARRY GRANADOS Health Plan Information #: 1 Payer: AET[employer] NON HMO PLANS Member Number: [id number] Policy Number: NA Group Number: [id number] Health Plan Information #: 2 Payer: [employer] H[employer] PRODUCTS Member Number: [id number] Policy Number: NA Group Number: [id number] Health Plan Information #: 3 Payer: [place] Member Number: [id number] Policy Number: NA Group Number: NA
--- OUTSIDE RECORDS SUMMARY | 2024-12-10 11:39 | XMS_ITS | Clinical Summary ---
Author Organization [facility] Address [address] [place] [phone] Phone Care Team Providers Care Social Welfare Administrator Name Role Phone Unavailable Primary Care Provider Unavailabl e Immunizations Immunization Administration Dates Next Due DTaP 12/29/2004, 1,2000,2000, 0 Hep B, ped/adol 2000,2000,2000 Hib (PRP-T) 04/28/2001,2000,2000 ,2000 IPV 12/29/2004,2000,2000 ,2000 MMR 01/28/2004,01/30/2001 Pneumococcal Conjugate 01/30/2001,2000,,2000 Varicella 02/03/2008,01/30/2001 Family History Relation Name Status Comments Father Alive healthy Mother Alive healthy Social History Tobacco Use Types Packs/Day Years Used Date Smoking Tobacco: Never Assessed Comments Unknown Sex and Gender Information Value Date Recorded Sex Assigned at Not on file Legal Sex Female 6:27 PM EDT Gender Identity Not on file Sexual Orientation Not on file Plan of Treatment Health Maintenance Due Date Last Done Comments DTaP,Tdap,and Td Vaccines (6 - Tdap) 01/24/2011 12/29/2004, 04/28/2001, 2000, Additional history exists HPV Vaccines (1 - 3-dose series) 01/24/2015 Influenza Vaccines (#1) 2024 COVID-19 Vaccine ( season) 2024 Hepatitis B Vaccines Completed 2000, 2000, 2000 Pneumococcal Vaccine Completed 01/30/2001, 2000, 2000, Additional history exists HIB Vaccines Completed 04/28/2001, 07/14, 2000, Additional history exists MMR Vaccines Completed 01/28/2004, 01/30/2001 IPV Vaccines Completed 12/29/2004, 10/15, 2000, Additional history exists Varicella Vaccines Completed 02/03/2008, 01/30/2001 Hepatitis A Vaccines Aged Out No long er eligible based on patient's age to complete this topic Men B Vaccine Aged Out No longer elig ible based on patient's age to complete this topic Meningococcal Vaccine Aged Out No zee juliana eligible based on patient's age to complete this topic
--- OUTSIDE RECORDS SUMMARY | 2024-12-10 11:39 | XMS_ITS | Continuity of Care Document ---
Author Organization [facility] Address [address] [place] [address]- Care Team Providers Care Instrument Fitter Name Role Phone Hermann NAQVI, Yvette Bragg Primary Care Physician Encounter [facility] Date(s): 11/05/24 - 12/05/[address] [address] Attending Physician: Gloria Lee Admitting Physician: Gloria Lee Referring Physician: Jesus ArVladimir Encounter Type: Triage Allergies, Adverse Reactions, Alerts [...] 10Admin Note: [facility] 11Admin Note: [facility] 12Admin Note: [facility] 13Admin Note: [facility] 14Admin Note[facility] 15Admin Note: [facility] 16Admin Note: [facility] 17Admin Note: [facility] 18Admin Note[facility] 19Admin Note[facility] 20Admin Note: [facility] 21Admin Note: [facility] 22Admin Note: [facility] 23Admin Note: [facility] 24Admin Note: [facility] 25Admin Note: [facility] 26Admin Note: [facility] 27Admin Note: [facility] 28Admin Note: [facility] 29Admin Note[facility] 30Admin Note[facility] 31Admin Note: [facility] 32Admin Note: [facility] 33Admin Note: [facility] Medications eletriptan 40 mg oral tablet 1 tablet = 40 mg, By Mouth, Once, PRN for migraine headache, # 9 tablet, 3 Refills, Soft Stop, 09/18/23 4:07:00 PM EST, Tablet, [facility]/pharmacy #[id number], Partial fill upon [...] 0 Refills, Maintenance, 07/30/24 4:46:00 PM EDT, [facility]/pharmacy #[id number], Partial fill upon [...] 5 Refills, Maintenance, 08/31/24 8:06:00 PMEST, Tablet, [facility]/pharmacy #[id number], Partial fill upon [...] Team Personnel Name: Marina Moeller MD Position: [facility] Physician - Pediatrics Member Role: Lifetime Consulting Physician Address: [address] [facility] [place] [address]- [place] [employer]: Name: Leonel Nichols MD Position: [facility] Physician - Pediatrics Member Role: Lifetime Consulting Physician Address: [address] [facility] [place] [address]- [place] [employer]: Name: Kristal Hamm RN Position: [facility] RN Member Role: Primary Care Nurse Name: Raheem Ritchie NP Position: [facility] PCO Associate Professional Member Role: Lifetime Consulting Provider Address: [address] [place] [address] [place] [address]- [place] [employer]: Name: Hermann NAQVI, Yvette Bragg Position: [facility] Outreach Member Role: PCP Address: [address] [place] [address]- [place] [employer]: Care Team Related Persons Name: PADMINI [...]
== END 2024-12-10 14:09 | disposition home or self-care (01) ==
PROVIDERS: PCP Physician Assistant; Visit Provider Physician Assistant
DX: G43.909 Migraine, unspecified, not intractable, without status migrainosus (principal); D50.9 Iron deficiency anemia, unspecified; G47.33 Obstructive sleep apnea (adult) (pediatric); D22.9 Melanocytic nevi, unspecified

== ENCOUNTER → 2024-12-10 10:05 | Outpatient (BNVA) | payer OTHER, SELFPAY | PROVIDERS: PCP Physician Assistant; Visit Provider Physician Assistant | DX: G43.909 Migraine, unspecified, not intractable, without status migrainosus (principal); D50.9 Iron deficiency anemia, unspecified; G47.33 Obstructive sleep apnea (adult) (pediatric); D22.9 Melanocytic nevi, unspecified; Z99.89 Dependence on other enabling machines and devices | CPT/HCPCS: 96127 ==

== ENCOUNTER 2024-12-24 09:24 | Outpatient (REF) | payer OTHER, SELFPAY ==
--- OUTSIDE RECORDS SUMMARY | 2024-12-24 10:59 | XMS_ITS | Encounter Summary ---
Author Organization [facility] Address [address] [place] [address] Care Team Providers Care Senior Svp Name Role Phone Yvette Mccrary MD Primary Care Provider Reason for Visit * Reason Comments Earache Left Encounter Details Date Type Department Care Team ([facility] Contact Info) Description 12/18/2024 5:45 PM EST Office Visit Walk-In Clinic - [address] [phone] Chico Mota, [employer] [address] [place] [address] Acute otitis externa of left ear, unspecified type (Primary Dx) Social History Tobacco Use Types [...] Sign Reading Time Taken Comments Blood Pressure 110/78 12/18/2024 5:47 PM EST Pulse 100 12/18/2024 5:47 PM EST Temperature 36.4 ??C (97.6 ??F) 12/18/2024 5:47 PM ES T Respiratory Rate - - Oxygen Saturation 97% 12/18/2024 5:47 PM EST Inhaled Oxygen Concentration - - Weight - - Height - - Body Mass Index - - documented in this encounter Ordered Prescriptions Prescription Sig Dispense Quantity Refills Last Filled Start Date End Date neomycin-polymyxin -hydrocortisone (CORTISPORIN) otic solution Administer 4 drops into the left ear 4 (four) times a day for 7 days. 10 mL 12/18/2024 cetirizine-pseudoe phedrine (ZyrTEC-D) 5-120 mg per 12 hr tablet Take 1 tablet by mouth 2 (two) times a day. 60 each 12/18/2024 5 documented in this encounter Progress Notes * Chico Mota NP - 12/18/2024 5:45 PM EST CHIEF COMPLAINT: Earache (Left) HPI: Examined during evaluation treatment with consent to patient Maranda Cano is a 24 y.o. old female presents to urgent care for evaluation of left ear pain witha clogged feeling x 1 week. She denies all other upper respiratory symptoms. Denies fevers, chills,nausea or vomiting. Denies all other complaints ROS: 12 point review of symptoms unremarkable except for those idenitified in the HPI. PAST MEDICAL HISTORY: There are no active problems to display for this patient. Past Surgical History: Procedure Laterality Date TONSILLECTOMY ADENOIDECTOMY, BILATERAL MYRINGOTOMY AND TUBES PROCEDURE: [place] TONSILLECTOMY & ADENOIDECTOMY <AGE 12 SOCIAL HISTORY: [...] have been marked as taking for the 12/18/24 encounter (Office Visit) with Chico Mota NP. ALLERGIES: Allergies Allergen Reactions Other Anaphylaxis seafood Amoxicillin Other Reaction(s): Hives/Urticaria Cefprozil Other Reaction(s): Hives/Urticaria PHYSICAL EXAM: Vitals: 12/18/24 1747 BP: 110/78 Pulse: 100 Temp: 36.4 ??C (97.6 ??F) SpO2: 97% General Appearance: awake, alert, oriented, in no acute distress Head/Face: NCAT Eyes: No gross abnormalities., PERRL, and EOMI Ears: Left ear tympanic membrane intact pearly lundberg with no perforation. Mild bulging at the tympanic membrane mild erythema in the canal with no discharge Nose/Sinuses: negative Mouth/Throat: Mucosa moist, no lesions; pharynx without erythema, edema or exudate. Procedure: Procedures LABS/IMAGING: IMPRESSION: 1. Acute otitis externa of left ear, unspecified type PLAN: The patient's PMH, problem list and medications were reviewed in reference to the above diagnosis/diagnoses. *. Based on history, ros, HPI and PE, presents hemodynamically stable in no acute distress. Well-appearing. *. Based on ROS, HPI, and PE, suggestive of otitis externa of the left ear. I believe there is alsosome congestion behind the left ear with a bulging tympanic membrane. Will prescribe Cortisporin otic as well as Zyrtec-D to use for no more than 2 weeks. Proper dosing and method to take medication addressed with patient. The risks and benefits of this medication were discussed with the patient. The patient understands the potential side effects and basic interactions of this medication. The patient is asked to call me or my colleagues if they begin to experience any difficulties with this medication. *. Educated patient to *. Advised to follow up with PCP in 14 days if symptoms do not improve. Advised to follow up with UC or PCP immediately for new or worsening symptoms. *. Educated on red flags symptoms. Advised to go to the ER or call 911 for these symptoms. Patient understands the plan. Patient verbalizes agreement with the plan. No orders of the defined types were placed in this encounter. Chico Mota NP on 12/18/2024 at 6:07 PM EST Today's documentation was made using voice recognition software. This note may contain grammatical errors secondary to this software. documented in this encounter Plan of Treatment Not on file documented as of this encounter Visit Diagnoses Diagnosis Acute otitis externa of left ear, unspecified type- Primary documented in this encounter Care Teams Senior Svp Relationship Specialty Start Date End Date Yvette Mccrary MD [address] [place] [address] PCP - General 01/10/23 documented as of this encounter
--- OUTSIDE RECORDS SUMMARY | 2024-12-24 10:59 | XMS_ITS | Continuity of Care Document ---
Author Organization [facility] Address [address] [place] [address], [address] d Floor, [address] [place] [address]- Care Team Providers Care Lamp Assembler Name Role Phone Hermann NAQVI, Yvette Bragg Primary [id number]): [facility] - 12/20/[facility] [address] [place] [address] [address]rd Floor, [address] [place] [address] Attending Physician: Massiel Carmona NP Admitting Physician: [...] 10Admin Note: [facility] 11Admin Note: [facility] 12Admin Note: [facility] 13Admin Note[facility] 14Admin Note: [facility] 15Admin Note: [facility] 16Admin Note[facility] 17Admin Note: [facility] 18Admin Note: [facility] 19Admin Note[facility] 20Admin Note: [facility] 21Admin Note[facility] 22Admin Note: [facility] 23Admin Note: [facility] 24Admin Note: [facility] 25Admin Note: [facility] 26Admin Note: [facility] 27Admin Note: [facility] 28Admin Note: [facility] 29Admin Note: [facility] 30Admin Note[facility] 31Admin Note: [facility] 32Admin Note[facility] 33Admin Note: [facility] Medications eletriptan 40 mg oral tablet 1 [...] 0 Refills, Maintenance, 07/30/24 4:46:00 PM EDT, [id number] Partial fill upon patient request [...] 5 Refills, Maintenance, 08/31/24 8:06:00 PMEST, Tablet, [facility]/pharmacy #[id number], Partial fill upon patient request [...] Team Personnel Name: Marina Moeller MD Position: [facility] Physician - Pediatrics Member Role: Lifetime Consulting Physician Address: [address] [facility] [place] [address]- [place] [employer]: Name: Leonel Nichols MD Position: [facility] Physician - Pediatrics Member Role: Lifetime Consulting Physician Address: [address] [facility] [place] [address]- [place] [employer]: Name: Kristal Hamm RN Position: [facility] RN Member Role: Primary Care Nurse Name: Raheem Ritchie NP Position: [facility] PCO Associate Professional Member Role: Lifetime Consulting Provider Address: [address] [place] [address] [place] [address]- [place] [employer]: Name: Yvette Mccrary MD Position: [facility] Outreach Member Role: PCP Address: [address] [place] [address]- [place] [employer]: Care Team Related Persons Name: PADMINI PANG Name: JOSUE GRANADOS Name: JULIET GRANADOS Name: ELEANOR GRANADOS Name: JUDY GRANADOS Insurance Providers Guarantor name: BARRY GRANADOS Health Plan Information #: 3 P[place]: [place] Member Number: [id number] Policy Number: NA Group Number: NA Health Plan Information #: 1 Payer: AET[employer] NON HMO PLANS Member Number: [id number] Policy Number: NA Group Number: [id number] Health Plan Information #: 2 Payer: [employer] Member Number: [id number] Policy Number: NA Group Number: [id number]
--- OUTSIDE RECORDS SUMMARY | 2024-12-24 10:59 | XMS_ITS | Continuity of Care Document ---
Author Organization [facility] Address [address] [place] [phone]- Care Team Providers Care Product Support Technician Name Role Phone Hermann NAQVI, Yvette Bragg Primary Care Physician Encounter [facility] ACCT R [id number] Date(s): 11/10/24 - 12/10/[address] [address] Encounter Type: Triage Allergies, Adverse Reactions, [...] given 04/24/06 10Admin Note: [facility] 11Admin Note: [facility] 12Admin Note: [facility] 13Admin Note: [facility] 14Admin Note: [facility] 15Admin Note: [facility] 16Admin Note: [facility] 17Admin Note: [facility] 18Admin Note: [facility] 19Admin Note: [facility] 20Admin Note: [facility] 21Admin Note: [facility] 22Admin Note: [facility] 23Admin Note: [facility] 24Admin Note: [facility] 25Admin Note: [facility] 26Admin Note: [facility] 27Admin Note: [facility] 28Admin Note: [facility] 29Admin Note: [facility] 30Admin Note: [facility] 31Admin Note: [facility] 32Admin Note: [facility] 33Admin Note: [facility] Medications eletriptan 40 mg oral tablet 1 [...] 0 Refills, Maintenance, 07/30/24 4:46:00 PM EDT, [facility]/pharmacy #[id number], Partial fill upon patient request if [...] 5 Refills, Maintenance, 08/31/24 8:06:00 PMEST, Tablet, [facility]/pharmacy #[id number], Partial fill upon patient request if [...] Team Personnel Name: Marina Moeller MD Position: [facility] Physician - Pediatrics Member Role: Lifetime Consulting Physician Address: [address] [facility] [place] [address]- Telecom: Name: Leonel Nichols MD Position: [facility] Physician - Pediatrics Member Role: Lifetime Consulting Physician Address: [address] [facility] [place] [address]- [place] Telecom: Name: Hansel MCGUIRE, Kristal Position: [facility] RN Member Role: Primary Care Nurse Name: Erma PRODUCT EXPERT, Raheem Medina Position: [facility] PCO Associate Professional Member Role: Lifetime Consulting Provider Address: [address] [place] [address] [place] [address]- [place] Telecom: Name: Yvette Mccrary MD Position: [facility] Outreach Member Role: PCP Address: [address] [place] [address]- Telecom: Care Team Related Persons Name: PADMINI [...]
--- OUTSIDE RECORDS SUMMARY | 2024-12-24 10:59 | XMS_ITS | Encounter Summary ---
Author Organization [facility] Address [address] [place] [address] Phone Care Team Providers Care And Taxi Instructor Bus Trolley Name Role Phone Unavailable Primary Care Provider Unavailabl e Encounter Details Date Type Department Care Team ([facility] st Contact Info) Description 03/02/2018 Conversion Encounter [facility] [address] [address] Social History Tobacco Use Types Packs/Day Years [...]
--- OUTSIDE RECORDS SUMMARY | 2024-12-24 10:59 | XMS_ITS | Clinical Summary ---
Author Organization [facility] Address [address] [place] [address] Phone Care Team Providers Care Protection Analyst Name Role Phone Unavailable Primary Care Provider [...]
--- OUTSIDE RECORDS SUMMARY | 2024-12-24 10:59 | XMS_ITS | Clinical Summary ---
Author Organization [address] [place] [address] [place] [phone] Phone Care Team Providers Care Smelter Liner Name Role Phone Yvette Mccrary MD Primary [...] NOSTRIL 2 TIMES A DAY. 30 mL Active cetirizine-pseud oephedrine (ZyrTEC-D) 5-120 mg per 12 hr tablet Take 1 tablet by mouth 2 (two) times a day. 60 each 025 2024 Active neomycin-polymyx in-hydrocortison e (CORTISPORIN) otic solution Administer 4 drops into the left ear 4 (four) times a day for 7 days. 10 mL 025 2024 Active azelastine (ASTELIN) 137 mcg (0.1 %) [...] Encounters Date Type Department Care Team Description 12/18/2024 5:45 PM EST Office Visit Walk-In [address] [phone] Chico Mota NP Acute otitis externa of left ear, unspecified type (Primary Dx) 11/23/2024 5:15 PM EST Office Visit [address] [phone] Anaid Laura NP Tinea (Primary Dx) 10/16/2024 1:15 PM EST Office Visit [address] [phone] Chico Mota, POWER BRAKE REBUILDER Symptoms of upper respiratory infection (URI) (Primary Dx) from Last 3 Months Surgical History Surgery Date Site/Laterality Comments TONSILLECTOMY ADENOIDECTOMY, BILATERAL MYRINGOTOMY AND TUBES PROCEDURE: [place] TONSILLECTOMY & ADENOIDECTOMY <AGE 12 Medical History [...] 08/19/2021, 11/03/2020, 10/06/2020 Influenza Vaccine (#1) 2024 , 08/02/2021, 08/02/2020, Additional history exists Cholesterol Screening [...] of upper respiratory infection (URI) POC RAPID [id number], MOLECULAR Routine 10/16/2024 2:01 PM EST Symptoms of upper respiratory infection (URI) LIPID PANEL Routine 06/04/2023 from Last 3 Months or Most Recently Relevant to Health Maintenance Results * Poc Rapid ONOD-[id number], MOLECULAR (10/16/2024 2:01 PM EST) [facility] COVID-19/SARS- COV-2 Rapid POC Negative Negative Swab Nasopharyngeal structure / Unknown 10/16/2024 2:01 PM EST Chico Mota NP POINT OF CARE TEST ENTER/EDIT ORDERABLES Final Result * POC respiratory syncytial virus manually resulted (10/16/2024 2:01 PM EST) [facility] RSV Rapid AG POC Negative Negative Swab Nasopharyngeal structure / Unknown 10/16/2024 2:01 PM EST Chico Mota NP POINT OF CARE TEST ENTER/EDIT ORDERABLES Final Result * Lipid panel (06/04/2023) [facility] LDL/HDL Ratio 3 0 - 4 Triglycerides 61 0 - 150 mg/dL Cholesterol 136 0 - 200 mg/dL HDL 41 >=40 mg/dL LDL Cholesterol 83 0 - 100 mg/dL Blood Venous blood specimen / Unknown Historical Provider LAB BLOOD ORDERABLES Mary l Result from Last 3 Months or Most Recently Relevant to Health Maintenance Insurance [employer] [id number] MEDICAID - [place] Care Teams Smelter Liner Relationship Specialty Start Date End Date Yvette Mccrary MD [address] [place] [phone] PCP - General 01/10/23
[2024-12-24 11:27] LABS: MANUAL DIFF FLAG NO
[2024-12-24 11:45] LABS: Basophils Percent Auto 0.9 % (0-2); Eosinophils Absolute Auto 0.1 X10*3/uL (0.0-0.4); Eosinophils Percent Auto 2.6 % (0-4); Hematocrit 42.7 % (37.0-47.0); Hemoglobin 13.6 g/dl (12.0-16.0); Imm Gran Abs Auto 0.01 X10*3/uL (0.00-0.03); Imm Gran Pct Auto 0.2 % (0.0-0.4); Lymphocytes Percent Auto 21.2 % (20-40); Mean Corpuscular HGB Conc 31.9 g/dl (31.0-35.0); Mean Corpuscular Hemoglobin 26.6 pg (27.0-33.0); Mean Corpuscular Volume 83.6 fL (80.0-98.0); Mean Platelet Volume 9.8 fL (9.4-12.3); Monocytes Absolute Auto 0.5 X10*3/uL (0.1-1.2); Neutrophils Percent Auto 65.1 % (45-73); Platelet Count 319 X10*3/uL (160-400); Red Blood Count 5.11 X10*6/uL (4.20-5.50); Red Cell Distribution Width 13.1 % (11.0-16.0); White Blood Count 4.6 X10*3/uL (4.8-10.8)
[2024-12-24 11:47] LABS: Estimated Average Glucose 103 mg/dL; Hemoglobin A1C 106.7651 umol/L; Hemoglobin A1c % 5.2 % (<6.0)
[2024-12-24 12:05] LABS: Creatinine Urine 197.64 mg/dL; Microalbum/Creatinine Ratio Ur 3.5 ug/mg cr (<30)
[2024-12-24 12:17] LABS: Alanine Aminotransferase 38 U/L (0-31); Albumin Level 4.1 g/dL (3.5-5.0); Alkaline Phosphatase 96 U/L (39-117); Anion Gap 11 (12-20); Aspartate Amino Transferase 32 U/L (5-31); Bilirubin Total 0.6 mg/dL (0.0-1.0); Blood Urea Nitrogen 7 mg/dL (9-16); Calcium 9.1 mg/dL (8.4-10.2); Carbon Dioxide 24 mmol/L (22-29); Chloride 107 mmol/L (96-108); Cholesterol 152 mg/dL (<200); Estimated Glomerular Filt Rate > 60; Glucose Fasting 88 mg/dL (60-99); HDL Cholesterol 36 mg/dL (>40); Iron 31 mcg/dL (30-160); LDL Cholesterol Calculated 103 mg/dL (<100); Percent Iron Saturation 11 % (15-50); Potassium 3.8 mmol/L (3.3-5.1); Sodium 138 mmol/L (135-145); Total Iron Binding Capacity 292 mcg/dL (228-428); Triglycerides 67 mg/dL (<150); Unsaturated Iron Binding 261 ug/dL
[2024-12-24 12:23] LABS: Ferritin 68 ng/mL (10-122); TSH reflex Free T4 2.07 uIU/mL (0.32-4.0)
[2024-12-24 15:17] LABS: Folate 6.5 ng/mL (> or = 4.0); Vitamin B12 526 pg/mL (200-900)
[2024-12-25 13:23] LABS: Lyme Abs Screen <0.90 index
== END 2024-12-24 09:25 | disposition home or self-care (01) ==
LOC: HO.WFDLDS 09:24
PROVIDERS: Visit Provider Physician Assistant
DX: G43.909 Migraine, unspecified, not intractable, without status migrainosus (principal); R73.01 Impaired fasting glucose; D50.9 Iron deficiency anemia, unspecified; G47.33 Obstructive sleep apnea (adult) (pediatric)
CPT/HCPCS: 36415; 80053; 80061; 82043; 82570; 82607; 82728; 82746; 83036; 83540; 83735; 84443; 85025; 86617; 86618

== ENCOUNTER 2025-01-27 08:44 | Outpatient (REF) | payer OTHER, SELFPAY ==
--- NOTE | ~2025-01-27 | US_ITS ---
CLINICAL HISTORY: R79.89 - Other specified abnormal findings of blood chemistry --- Additional Notes or Special Instructions: elevated LFTs US abdomen complete Comparison: None Findings: Gallbladder unremarkable, no stone formation or wall thickening. Common duct measures 6.6 mm. No sonographic Ashby sign. Liver is homogeneous and normal in size and echogenicity. Main portal vein patent with normal direction of flow. Pancreas is unremarkable. Aorta and IVC patent and normal in caliber. The right kidney is normal, 12.6 cm in length. No focal abnormality or hydronephrosis. The left kidney is normal, 13.3 cm in length. No focal abnormality or hydronephrosis. The spleen is normal, 13.4 cm in length. No focal abnormality. Impression: Dilated common bile duct, otherwise unremarkable This document has been electronically signed by: Ajnel Diop MD on 01/27/2025 22:01:43
--- OUTSIDE RECORDS SUMMARY | 2025-01-27 09:07 | XMS_ITS | Encounter Summary ---
Author Organization [facility] Address [address] [place] [phone] Phone Care Team Providers Care System Consultant Name Role Phone Unavailable Primary Care Provider Unavailabl e Encounter Details Date Type Department Care Team ([facility] st Contact Info) Description 03/02/2018 Conversion Encounter [facility] [address] [address] Social History Tobacco Use Types Packs/Day Years [...]
--- OUTSIDE RECORDS SUMMARY | 2025-01-27 09:07 | XMS_ITS | Clinical Summary ---
Author Organization [address] [place] [address] [place] [phone] Phone Care Team Providers Care Advertising Clerk Name Role Phone Yvette Mccrary MD Primary [...] 5-6. Take with food in the morning. 05/26/20 24 Active albuterol HFA (PROAIR HFA ; PROVENTIL HFA ; VENTOLIN HFA) 90 mcg/actuation inhaler Inhale 2 Puffs into the lungs 4 times daily as needed for Cough or Wheezing. 05/26/20 24 Active fluticasone-salme terol (ADVAIR DISKUS) 250-50 mcg/dose diskus inhaler Inhale 1 Inhaler into the lungs 2 times daily. 02/15/20 24 Active EPINEPHrine (EpiPen 2-Mathieu) 0.3 mg/0.3 mL injection Inject 0.3 mg into the muscle as needed for Other (anaphylactic reaction). 2-pack. Fill with whichever brand is covered by insurance. 09/26/20 23 Active erenumab-aooe (Aimovig Autoinjector) 140 mg/mL injection Inject into the skin. For migraine 06/03/20 23 Active ondansetron (ZOFRAN) 4 mg tablet Take 1 Tablet by mouth every 8 hours as needed for Nausea. Associated with migraines 06/03/20 23 Active medical supply, miscellaneous (MISCELLANEOUS MEDICAL SUPPLY MISC) IUD'S IU by Intrauterine route. Active azelastine (ASTELIN) 137 mcg (0.1 %) nasal spray ADMINISTER 1 SPRAY INTO EACH NOSTRIL 2 TIMES A DAY. 30 mL 11/27/19 25 Active cetirizine-pseudo ephedrine (ZyrTEC-D) 5-120 mg per 12 hr tablet Take 1 tablet by mouth 2 (two) times a day. 60 each 12/19/19 25 Active Active Problems No known active problems Encounters Date Type Department Care Team Description 12/18/2024 5:45 PM EST Office Visit Walk-In [address] [phone] Chico Mota NP Acute otitis externa of left ear, unspecified type (Primary Dx) 11/23/2024 5:15 PM EST Office Visit [facility] [address] [place] [phone] Anaid Laura NP Tinea (Primary Dx) from Last 3 Months Surgical History Surgery Date Site/Laterality Comments TONSILLECTOMY ADENOIDECTOMY, BILATERAL MYRINGOTOMY AND TUBES PROCEDURE: [place] TONSILLECTOMY & ADENOIDECTOMY <AGE 12 Medical History [...] Health Maintenance Due Date Last Done Comments Pneumococcal Vaccine: Pediatrics (0 to 5 Years) [...] season) 2024 08/19/2021, 11/03/2020, 10/06/2020 Influenza Vaccine (Season Ended) 2025 08/20/2022, 08/02/2021, 08/02/2020, Additional history exists Cholesterol Screening [...] Meningococcal ACWY Vaccine Completed 03/20/2016, Meningococcal B Vaccine Aged Out No l onger eligible based on patient's age to complete this topic RSV Immunization Patients Under 20 months Aged Out No longer eligible based on patient's age to complete this topic Procedures Procedure Name Priority Date/Time Associated Diagnosis Comments LIPID PANEL Routine 06/04/2023 from Last 3 Months or Most Recently Relevant to Health Maintenance Results * Lipid panel (06/04/2023) LDL/HDL Ratio 3 0 - 4 Triglycerides 61 0 - 150 mg/dL Cholesterol 136 0 - 200 mg/dL HDL 41 >=40 mg/dL LDL Cholesterol 83 0 - 100 mg/dL Blood Venous blood specimen / Unknown [facility] Provider LAB BLOOD ORDERABLES Mary l Result from Last 3 Months or Most Recently Relevant to Health Maintenance Insurance [employer] [place] - [place] Care Teams Advertising Clerk Relationship Specialty Start Date End Date Yvette Mccrary MD [address] [place] [phone] PCP - General 01/10/23
--- OUTSIDE RECORDS SUMMARY | 2025-01-27 09:07 | XMS_ITS | Clinical Summary ---
Author Organization [facility] Address [address] [place] [phone] Phone Care Team Providers Care Residential Sales Associate Name Role Phone Unavailable Primary Care Provider [...]
== END 2025-01-27 08:45 | disposition home or self-care (01) ==
LOC: HO.HMGCX 08:44
PROVIDERS: PCP Physician Assistant; Visit Provider Physician Assistant
DX: R79.89 Other specified abnormal findings of blood chemistry (principal)
CPT/HCPCS: 76700

== ENCOUNTER → 2025-01-27 08:54 | Outpatient (BNV) | payer OTHER, SELFPAY | PROVIDERS: PCP Physician Assistant; Visit Provider Radiology Diagnostic Radiology | DX: R79.89 Other specified abnormal findings of blood chemistry (principal) | CPT/HCPCS: 76700 ==

== ENCOUNTER 2025-03-25 14:24 | Outpatient (AMB) | payer BC, SELFPAY ==
--- NOTE | 2025-03-25 14:32 | MHC.PC.OV ---
Vital Signs 03/25/25 14:36 Height 5 ft 6.61 in Weight 305 lb BMI 48.3 BP 110/82 Blood Pressure Location Rt brachial Position Sitting Respiration 16 Pulse 101 H Pulse Source Pulse Oximeter Temp 98.4 F Temp Source Oral Pulse Oximetry (%) 98 Oxygen Delivery Method Room Air Intake Visit Reasons: Annual physical Intake Note: Physical. Zepbound was denied. See letter in chart. Point Of Care Technician Required: No Allergies amoxicillin Allergy (Unknown, Verified 12/10/24 10:18) Hives cefprozil Allergy (Unknown, Verified 12/10/24 10:18) Hives Medication List - Last Reconciled 03/25/25 by Lanny Collins PA-C epinephrine 0.3 mg (0.3 mL) IM ONCE PRN ondansetron mg PO tirzepatide (weight loss) (Zepbound) 2.5 mg (0.5 mL) subcut QWEEK topiramate 100 mg PO BID Tobacco use date assessed: 03/25/25 Dental Screening Dental Screen Date: 12/10/24 HPI Annual physical HPI Details The patient is a 24-year-old female presenting today for a physical exam. She is relatively new here. neuro: She reports a history of chronic migraines, experiencing significant episodes over the past 11 years. The migraines are described as severe, with symptoms including sensitivity to light, sound, and smell, accompanied by stabbing pain, swishing in the ears, dizziness, nausea, and visual disturbances such as blurry vision. These symptoms have notably impacted her quality of life. The patient recently underwent an evaluation for Idiopathic Intracranial Hypertension (IIH) which included a spinal tap that returned negative results. However, the cerebrospinal fluid analysis was complicated by traumatic tap resulting in blood-tinged samples and displayed elevated protein levels and white blood cell counts. MRI and MRV indicated narrowing in the right venous sinuses and widening on the left but ruled out dural venous sinus thrombosis. Current treatment includes Topamax and Zofran as needed for nausea. The patient was evaluated for Multiple Sclerosis (MS) previously due to loss of vision in the left eye, but MRI results were negative. She says that she is frustrated with the migraines and she is getting them more frequently and would like to see the migraine Clinic at [facility]. PULM: Additionally, the patient was diagnosed with sleep apnea and prescribed CPAP therapy, which she returned the equipment because she could not use the machine. She is following with jessica and is going to try a mouth guard. General: She would like to try to get Zepbound approved. She states that her insurance recently changed in most people at her work are on Zepbound. She has tried numerous diets in the past including [place], Atkins, weight watchers. She has tried kdnn-xio-qttldlh fat burners without any significant improvement. She is currently working on eating healthy and increasing her exercise. She states that despite eating healthy and exercising she has continued to gain weight. She does have PCOS and she states that this is a struggle for her. Her last A1c was 5.2. She also reports cold easily in her hands and feet. She states that if she touches something cold it feels like her hands get very cold. No sores. No numbness, tingling or weakness. 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 Diagnosed with PCOS Derm: Following with Dermatology and recently diagnosed with HS. States that she is well-controlled with cleanses. 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 Current occupational exposures/hazards: No Cognitive needs: No Hearing needs: No Vision needs: No Questionnaire Thrive Questionnaire Date Thrive assessed: 12/07/24 I am a: Patient What is your living situation today?: I have a steady place to live Within the past 12 months, did the food you bought not last and you didn't have the money to get more?: Never true Within the past 12 months, did you worry whether your food would run out before you got money to buy more?: Never true Do you have trouble paying for medicines?: No Do you have trouble getting transportation to medical appointments?: No Do you have trouble paying your heating and electricity bill?: No Do you have trouble taking care of your child, family member or friend?: No Do you have trouble with day-to-day activities such as bathing, preparing meals, shopping, managing finances, etc.?: No Are you currently unemployed and looking for a job?: No Are you interested in more education?: No Please select the resources that you would like help with: None Currently or been in a relationship where the following occur: No concerns reported THRIVE Score: 0 AUDIT C Alcohol Use Questionnaire (AUDIT-C) 1. How often do you have a drink containing alcohol?: Monthly or less 2. How many drinks containing alcohol do you have on a typical day when you are drinking?: 1 or 2 3. How often do you have six or more drinks on one occasion?: Never Total Score: 1 EDDA-7 AMB Questionnaire EDDA-7 Date EDDA - 7 assessed: 12/10/24 Source: Developed by Drs. Dylan Bonilla, Stacey Maradiaga, Reynaldo Correa and colleagues, with an educational myrna from [employer]. Physical exam (Primary Care) Vital Signs: Last Vital Signs Temp 98.4 F 03/25/25 14:36 Pulse 101 H 03/25/25 14:36 Resp 16 03/25/25 14:36 BP 110/82 03/25/25 14:36 Pulse Ox 98 03/25/25 14:36 Oxygen Delivery Method Room Air 03/25/25 14:36 BMI result Body Mass Index 48.3 Tobacco/Smoking Status: Tobacco use Status Tobacco use date assessed 03/25/25 03/25/25 14:40 Patient Tobacco Use Status Never used Tobacco 03/25/25 14:54 e-Cigarette/Vaping Use Never Used 03/25/25 14:54 Thrive Assessment: Date of Thrive Assessment Date Thrive assessed 12/07/24 03/25/25 14:40 Currently or been in a relationship where the following occur: No concerns reported Const Orientation/consciousness: patient oriented x3 HENMT Ears: hearing grossly normal bilaterally and TM's normal bilaterally General nose exam: No nasal polyps present Face and sinus: Yes sinuses nontender Mouth: Normal oral and palatal mucosa present Eyes Pupils: Equal, round and reactive pupils present EOM: EOMs intact bilaterally Neck Neck: Yes full ROM and Yes no lymphadenopathy Thyroid: Thyroid normal Chest Chest palpation & inspection: normal inspection of the chest Resp Auscultation: clear to auscultation bilaterally Cardio Rate: regular rate Rhythm: regular rhythm Heart sounds: S1 normal heart sound present and S2 normal heart sound present Peripheral pulses: Peripheral pulses 2+ throughout GI Other: Soft, nontender Auscultation: normal bowel sounds Rectal Exam - Female: deferred General: Yes no CVA tenderness Back/Spine/Pelvis Other: Nontender Back: no CVA tenderness Skin General skin exam: no rashes or lesions noted Neuro General: patient oriented x3, gait normal, CN's II-XI intact bilaterally and deep tendon reflexes 2+ bilaterally Cranial nerves: Yes Equal, round and reactive pupils present Motor exam (neuro): 5/5 motor strength present throughout Sensory Exam: double simultaneous stimulation for sensation normal Coordination: [id number] test normal and Romberg test negative Extrem General: Yes normal to inspection and Yes full ROM Psych Affect: normal affect Attitude: cooperative Thought process: Normal thought process present Thought content: Normal thought content present Insight: Good insight present (Psych) Judgement: Good judgement present (Psych) Coding Level of Care Code Est Pt Prev Care 18-39y(84081) Diagnoses Routine general medical examination at a health care facility Z00.00 Migraine G43.909 Elevated LFTs R79.89 Common bile duct dilation K83.8 Feels cold R44.8 Hidradenitis suppurativa L73.2 Assessment & Plan Assessment & Plan (1) Routine general medical examination at a health care facility: Code(s): Z00.00 - Encounter for general adult medical examination without abnormal findings Plan: Health maintenance reviewed. Insurance paperwork filled out for her today (2) Migraine: Code(s): G43.909 - Migraine, unspecified, not intractable, without status migrainosus Category: Medical Plan: Referral to headache Clinic at [facility] (3) Elevated LFTs: Code(s): R79.89 - Other specified abnormal findings of blood chemistry Category: Medical Plan: Advised to repeat LFTs. (4) Common bile duct dilation: Code(s): K83.8 - Other specified diseases of biliary tract Category: Medical Plan: She does have an upcoming appointment with GI in May. (5) Feels cold: Code(s): R44.8 - Other symptoms and signs involving general sensations and perceptions Category: Medical Plan: Labs ordered. Pulses WNL. Good capillary refill. Sensation intact (6) Hidradenitis suppurativa: Code(s): L73.2 - Hidradenitis suppurativa Category: Medical Plan: Following with Dermatology. Currently controlled with topicals Orders: Orders Complete Blood Count Auto Diff 03/25/25 R44.8 - Other symptoms and signs involving general sensations and perceptions TSH reflex Free T4 03/25/25 R44.8 - Other symptoms and signs involving general sensations and perceptions Referrals Neurology Referral G43.379 - Migraine, unspecified, not intractable, without status migrainosus Medications: Refilled tirzepatide (weight loss) (Zepbound) for 4 weeks 2.5 mg (0.5 mL) subcut QWEEK 2 mL 1RF
[2025-03-25 14:36] VITALS: BP 110/82; PULSE 101; RESP 16; TEMP 36.9; O2SAT 98; BMI 48.3
--- OUTSIDE RECORDS SUMMARY | 2025-03-25 16:59 | XMS_ITS | Clinical Summary ---
Author Organization [facility] Address [address] [place] [phone] Phone Care Team Providers Care Parts Professional Name Role Phone Unavailable Primary Care Provider [...]
== END 2025-03-25 15:32 | disposition home or self-care (01) ==
LOC: HO.HMCFM 14:25
PROVIDERS: PCP Physician Assistant; Visit Provider Physician Assistant
DX: Z00.00 Encounter for general adult medical examination without abnormal findings (principal); G43.909 Migraine, unspecified, not intractable, without status migrainosus; R79.89 Other specified abnormal findings of blood chemistry; K83.8 Other specified diseases of biliary tract; R44.8 Other symptoms and signs involving general sensations and perceptions; L73.2 Hidradenitis suppurativa

== ENCOUNTER → 2025-03-25 14:24 | Outpatient (BNVA) | payer BC, SELFPAY | PROVIDERS: PCP Physician Assistant; Visit Provider Physician Assistant | DX: Z13.89 Encounter for screening for other disorder (principal) ==

== ENCOUNTER 2025-10-13 09:32 | Outpatient (REF) | payer BC, SELFPAY ==
[2025-10-13 16:18] LABS: MANUAL DIFF FLAG NO
[2025-10-13 16:39] LABS: Hematocrit 45.4 % (37.0-47.0); Hemoglobin 14.2 g/dl (12.0-16.0); Imm Gran Abs Auto 0.01 X10*3/uL (0.00-0.03); Imm Gran Pct Auto 0.2 % (0.0-0.4); Lymphocytes Absolute Auto 1.7 X10*3/uL (1.2-4.9); Mean Corpuscular HGB Conc 31.3 g/dl (31.0-35.0); Mean Corpuscular Hemoglobin 26.9 pg (27.0-33.0); Mean Corpuscular Volume 86.1 fL (80.0-98.0); NRBC Abs Auto 0.000 X10*3/uL (0.0-0.012); NRBC Pct Auto 0.0 /100WBC (0.0-0.2); Platelet Count 391 X10*3/uL (160-400); Red Blood Count 5.27 X10*6/uL (4.20-5.50); White Blood Count 6.1 X10*3/uL (4.8-10.8)
[2025-10-13 17:50] LABS: Alanine Aminotransferase 41 U/L (0-31); Albumin Level 4.4 g/dL (3.5-5.0); Alkaline Phosphatase 96 U/L (39-117); Aspartate Amino Transferase 38 U/L (5-31); Total Protein 7.7 g/dL (6.5-8.0)
[2025-10-13 18:37] LABS: Gamma Glutamyl Transpeptidase 35 U/L (7-33)
[2025-10-14 05:34] LABS: HBsAGNum1 0.37 S/CO (0.00-0.99); Hepatitis B Surface Antigen Negative (Negative); ~HepC Num1 0.14 S/CO (0.00-0.79); ~Hepatitis C Antibody Nonreactive (Nonreactive)
== END 2025-10-13 09:33 | disposition home or self-care (01) ==
LOC: HO.WFDLDS 09:32
PROVIDERS: PCP Physician Assistant; Visit Provider Physician Assistant
DX: R44.8 Other symptoms and signs involving general sensations and perceptions (principal); R79.89 Other specified abnormal findings of blood chemistry; R94.5 Abnormal results of liver function studies; K83.8 Other specified diseases of biliary tract
CPT/HCPCS: 36415; 80076; 82977; 84443; 85025; 86803; 87340

== ENCOUNTER 2025-10-13 09:32 | Outpatient (AMB) | payer BC, SELFPAY ==
--- NOTE | 2025-10-13 09:56 | A.OFFPC_ITS ---
Vital Signs 10/13/25 09:57 Height 5 ft 6.61 in Weight 306 lb 8 oz BMI 48.6 BP 112/86 Blood Pressure Location Rt brachial Position Sitting Respiration 16 Pulse 107 H Pulse Source Pulse Oximeter Pulse Oximetry (%) 96 Oxygen Delivery Method Room Air Intake Visit Reasons: 3 month follow up, resched r/s 09/21 Intake Note: Three month follow up Education Program Specialist Required: No Allergies amoxicillin Allergy (Unknown, Verified 10/13/25 09:57) Hives cefprozil Allergy (Unknown, Verified 10/13/25 09:57) Hives Medication List - Last Reconciled 10/13/25 by Lanny Collins PA-C atogepant (Qulipta) 30 mg PO DAILY epinephrine 0.3 mg (0.3 mL) IM ONCE PRN ondansetron mg PO spironolactone 50 mg PO DAILY tirzepatide (weight loss) (Zepbound) 2.5 mg (0.5 mL) subcut QWEEK Tobacco use date assessed: 03/25/25 Dental Screening Dental Screen Date: 12/10/24 HPI 3 month follow up, resched r/s 09/21 HPI Details The patient is a 25-year-old female presenting today for a follow up. neuro: She reports a history of chronic migraines, experiencing significant episodes over the past 11 years. The migraines are described as severe, with symptoms including sensitivity to light, sound, and smell, accompanied by stabbing pain, swishing in the ears, dizziness, nausea, and visual disturbances such as blurry vision. These symptoms have notably impacted her quality of life. The patient recently had MRI, MRA, MRV. Current treatment is with Qulipta. She uses zofran as needed for nausea. Follows [facility] neurology. PULM: Additionally, the patient was diagnosed with sleep apnea and prescribed CPAP therapy, which she returned the equipment because she could not use the machine. She is following with pulm and is going to try a mouth guard. GI: Was noted in the past have elevated LFTs and common bile duct dilatation. She was referred to GI but forgot to follow up with them. MSK: in 2021 fractured l3, l4, l5 and was followed by [facility]. She states that three days ago fell on the ice and landed on her left side. She has been having left sided low back pain and hip pain. She states it at times is radiating down the left leg. General: She would like to try to get Zepbound approved. She states that her insurance recently changed in most people at her work are on Zepbound. She has tried numerous diets in the past including [place], Atkins, weight watchers. She has tried cmxr-bkr-kcreahh fat burners without any significant improvement. She is currently working on eating healthy and increasing her exercise. She states that despite eating healthy and exercising she has continued to gain weight. Int he past she was on wegovy and lsot 40 lbs. She had to stop it due to insurance changes. She has only ever been able to lose up to 15 lbs on her own with caloric restriction and exercise. She currently is unable to lose weight at all despite these changes. She has gained 8 lbs on our scale from last year. Adela king does have PCOS and she states that this is a struggle for her. Her last A1c was 5.2. 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 Diagnosed with PCOS Derm: Following with Dermatology and recently diagnosed with HS. States that she is well-controlled with cleanses. 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 Current occupational exposures/hazards: No Cognitive needs: No Hearing needs: No Vision needs: No Questionnaire Thrive Questionnaire Date Thrive assessed: 12/07/24 I am a: Patient What is your living situation today?: I have a steady place to live Within the past 12 months, did the food you bought not last and you didn't have the money to get more?: Never true Within the past 12 months, did you worry whether your food would run out before you got money to buy more?: Never true Do you have trouble paying for medicines?: No Do you have trouble getting transportation to medical appointments?: No Do you have trouble paying your heating and electricity bill?: No Do you have trouble taking care of your child, family member or friend?: No Do you have trouble with day-to-day activities such as bathing, preparing meals, shopping, managing finances, etc.?: No Are you currently unemployed and looking for a job?: No Are you interested in more education?: No Currently or been in a relationship where the following occur: No concerns reported THRIVE Score: 0 EDDA-7 AMB Questionnaire EDDA-7 Date EDDA - 7 assessed: 12/10/24 Source: Developed by Drs. Dylan Bonilla, Stacey Maradaiga, Reynaldo Correa and colleagues, with an educational myrna from [employer]. Physical exam (Primary Care) Vital Signs: Last Vital Signs Pulse 107 H 10/13/25 09:57 Resp 16 10/13/25 09:57 BP 112/86 10/13/25 09:57 Pulse Ox 96 10/13/25 09:57 Oxygen Delivery Method Room Air 10/13/25 09:57 BMI result Body Mass Index 48.6 Tobacco/Smoking Status: Tobacco use Status Tobacco use date assessed 03/25/25 10/13/25 10:02 Patient Tobacco Use Status Never used Tobacco 10/13/25 10:08 e-Cigarette/Vaping Use Never Used 10/13/25 10:08 Thrive Assessment: Date of Thrive Assessment Date Thrive assessed 12/07/24 10/13/25 10:02 Currently or been in a relationship where the following occur: No concerns reported Coding Level of Care Code Est Pt Level 4 (64245) Add On Problem Visit Only Diagnoses Elevated LFTs R79.89 Common bile duct dilation K83.8 Morbid obesity with BMI of 45.0-49.9, adult E66.01; Z68.42 Lumbar pain with radiation down left leg M54.50; M79.605 Assessment & Plan Assessment & Plan (1) Elevated LFTs: Code(s): R79.89 - Other specified abnormal findings of blood chemistry Category: Medical Plan: reminded to call GI repeat labs (2) Common bile duct dilation: Code(s): K83.8 - Other specified diseases of biliary tract Category: Medical Plan: as above (3) Morbid obesity with BMI of 45.0-49.9, adult: Code(s): E66.01 - Morbid (severe) obesity due to excess calories; Z68.42 - Body mass index [BMI] 45.0-49.9, adult Category: Medical Plan: We will try to get zepbound covered (4) Lumbar pain with radiation down left leg: Code(s): M54.50 - Low back pain, unspecified; M79.605 - Pain in left leg Category: Medical Plan: Imaging ordered We will try prednisone taper. Discussed risks and benefits and adverse effects of the medication. Muscle relaxant order to use as needed. Orders: Orders XR lumbar spine 2-3V 10/13/25 M54.50 - Low back pain, unspecified XR hips VERNON min 3V 10/13/25 M25.551 - Pain in right hip, M25.552 - Pain in left hip Referrals Gastroenterology Referral K83.8 - Other specified diseases of biliary tract, R79.89 - Other specified abnormal findings of blood chemistry Medications: New cyclobenzaprine 10 mg PO TID PRN 30 tabs 0RF muscle spasm 10 days prednisone take 3 tab po x 3 days, take 2 tab po x 3 days, 1 tab po x 3 days 18 tabs 0RF tirzepatide (weight loss) (Zepbound) 2.5 mg (0.5 mL) subcut QWEEK 2 mL 0RF
[2025-10-13 09:57] VITALS: BP 112/86; PULSE 107; RESP 16; O2SAT 96; BMI 48.6
--- OUTSIDE RECORDS SUMMARY | 2025-10-13 09:58 | XMS_ITS | Encounter Summary ---
Author Organization [facility] Address [address] [place] [address] Care Team Providers Care Director Of Staff Development Name Role Phone Lanny Collins Primary Care Provider [phone] Encounter Details Date Type Department Care Team (Late Contact Info) Description 06/02/2025 Scanned Document [address] [phone] Neurology, Scan Social History Tobacco Use Types Packs/Day Years Used Date Smoking Tobacco: Never Smokeless Tobacco: Never Alcohol Use Standard Drinks/Week Comments Yes 0 (1 standard drink = 0.6 oz pur e alcohol) Rarely PHQ-2 Answer Date Recorded PHQ-2 Total Score 0 05/26/2025 [facility] of Occupat ional Health - Occupational Stress Questionnaire Answer Date Recorded Do you feel stress - tense, restless, nervous, or anxious, or unable to sleep at night because your mind is troubled all the time - these days? Only a little 05/26/2025 Physical Activity Answer Date Recorded On average, how many days pe r week do you engage in moderate to strenuous exercise (like a brisk walk)? 7 days 05/26/2025 On average, how many minutes do you exercise per day at this level? 120 min 05/26/2025 Comments No Sex and Gender Information Value Date Recorded Sex Assigned at Not on file Legal Sex Female 8:54 PM EDT Gender Identity Not on file Sexual Orientation Not on file documented as of this encounter Plan of Treatment Upcoming Encounters Date Type Department Care Team (Late st Contact Info) Description 10/18/2025 9:30 AM EST Office Visit [address] [place] [address] Shayy Bentley PA-C 65 [facility] [address] [place] [phone] documented as of this encounter Visit Diagnoses Not on filedocumented in this encounter Care Teams Director Of Staff Development Relationship Specialty Start Date End Date Lanny Collins PA [address] [place] [address] PCP - General Adult Health - PA/APNP/MAINTENANCE MECHANIC ENGINE/FIELD SUPPORT REPRESENTATIVE 03/29/25 documented as of this encounter
--- OUTSIDE RECORDS SUMMARY | 2025-10-13 09:58 | XMS_ITS | Clinical Summary ---
Author Organization [facility] Address [address] [place] [address] Care Team Providers Care Jig Grinder Set Up Operator Name Role Phone Lanny Collins Primary Care Provider [phone] Allergies Active Allergy Reactions Criticality Noted Date Comments Amoxicillin Hives Medium 05/24/2023 Other Reaction(s): Hives/Urticaria Cefprozil Hives Medium 05/24/2023 Other Reaction(s): Hives/Urticaria Seafood Anaphylaxis High 05/26/2025 Medications topiramate (TOPAMAX) 25 MG tablet 2 tablets (50 mg total). 4 Active atogepant (QULIPTA) 30 mg tabletIndications:C hronic migraine without aura, with intractable migraine, so stated, with status migrainosus Take 1 tablet (30 mg total) by mouth daily. 90 tablet 1 5 12/01/19 26 Active ondansetron (ZOFRAN-ODT) 4 MG disintegrating tabletIndications:C hronic migraine without aura, with intractable migraine, so stated, with status migrainosus Take 1 tablet (4 mg total) by mouth 2 times daily (every 12 hours) as needed for nausea or vomiting. 20 tablet 5 Active rimegepant (Nurtec) 75 mg disintegrating tabletIndications:C hronic migraine without aura, with intractable migraine, so stated, with status migrainosus Take 1 tablet (75 mg total) by mouth daily as needed for migraine. Max. 75 mg/24 hours 8 tablet 2 5 11/10/19 26 Active Family History Medical History Relation Name Comments Stroke Paternal Grandmother Relation Name Status Comments Paternal Grandmother Social History Tobacco Use Types Packs/Day Years Used Date Smoking Tobacco: Never Smokeless Tobacco: Never Tobacco Cessation:Counseling Given: Not Answered Alcohol Use Standard Drinks/Week Comments Yes 0 (1 standard drink = 0.6 oz pur e alcohol) Rarely PHQ-2 Answer Date Recorded PHQ-2 Total Score 0 05/26/2025 [facility] Occupational Stress Questionnaire Answer Date Recorded [...] on file Sexual Orientation Not on file Last Filed Vital Signs Vital Sign Reading Time Taken Comments Blood Pressure 128/77 05/26/2025 10:20 AM EDT Pulse 113 05/26/2025 10:20 AM EDT Temperature - - Respiratory Rate 14 05/26/2025 10:20 AM EDT Oxygen Saturation 98% 05/26/2025 10:20 AM EDT Inhaled Oxygen Concentration - - Weight 138 kg (303 lb 6.4 oz) 05/26/2025 10:20 A M EDT Height 167.6 cm (5' 6 ) 05/26/2025 10:20 AM EDT Body Mass Index 48.97 05/26/2025 10:20 AM EDT Plan of Treatment Upcoming Encounters Date Type Department Care Team (Late st Contact Info) Description 10/18/2025 9:30 AM EST Office Visit [facility] [place] - [address] [phone] Shayy Bentley PA-C 65 [facility] [address] [place] [id number] Health Maintenance Due Date Last Done Comments Hepatitis C Virus Screening 2000 HIV Screening 01/24/2013 HPV Vaccines (1 - 3-dose series) 01/24/2015 DTaP/Tdap/Td Vaccines (1 - Tdap) 01/24/2019 Hepatitis B Vaccines (1 of 3 - 19+ 3-dose series) 01/24/2019 Pap Smear (Ages 21-65) 01/24/2021 Influenza Vaccine 05/14/2025 08/02/2020, , 07/13/2018, Additional history exists COVID-19 Vaccine ( - 2024- season) 2025 11/03/2020, 10/06/2020 Pneumococcal Vaccine: Pediatric (0-5 Years) and At-Risk Patients (6 to 49 Years) Aged Out No longer eligible based on patient's age to complete this topic Insurance [facility] STATE - PPO Care Teams Jig Grinder Set Up Operator Relationship Specialty Start Date End Date Lanny Collins PA [address] [place] [address] PCP - General Adult Health - PA/JOANNNP/HEATING ELEMENT BUILDER/NETWORKS SOFTWARE CONSULTANT 03/29/25
--- OUTSIDE RECORDS SUMMARY | 2025-10-13 09:58 | XMS_ITS ---
Author Name [facility] Organization Unknown History of Medication Use Medication Directions Dispensed Refills Start Date End Date Stat us gadobutrol (GADAVIST) injection 10 mL 10 mL, Intravenous, Once in imaging, contrast, Starting on Dolly 06/17/25 at 1545, For 1 dose, Radiology Appointment 06/17/2025 completed atogepant (QULIPTA) 30 mg tablet Take 1 tablet (30 mg total) by mouth daily. 05/26/2025 active rimegepant (Nurtec) 75 mg disintegrating tablet Take 1 tablet (75 mg total) by mouth daily as needed for migraine. 12/24/2024 active ondansetron (ZOFRAN-ODT) 4 MG disintegrating tablet Take 1 tablet (4 mg total) by mouth. 07/30/2024 active topiramate (TOPAMAX) 25 MG tablet 2 tablets (50 mg total). 07/30/2024 active Allergies Allergen Reaction Severity Comment Documented Date Source Statu s SEAFOOD ANAPHYLAXIS 05/26/2025 [facility] active AMOXICILLIN HIVES Other Reaction( s): Hives/Urticaria 05/24/2023 [facility] active CEFPROZIL HIVES Other Reaction( s): Hives/Urticaria 05/24/2023 [facility] active Problems Problem Status Onset Date Problem Type Date of Resoluti on Source Visual disturbances active EncounterDiagnosisAc t CCT Pulsatile tinnitus active EncounterDiagnosisAct CCT Positional headache active EncounterDiagnosisAc t CCT Encounters Encounter Type Encounter Reason Primary Diagnosis Location Date Ambulatory Pulsatile tinnitus, unspecified ear Pulsatile tinnitus, unspecified ear [facility] 06/17/2025 Ambulatory Pulsatile tinnitus, unspecified ear Pulsatile tinnitus, unspecified ear [facility] 06/17/2025 Ambulatory Pulsatile tinnitus, unspecified ear Pulsatile tinnitus, unspecified ear [facility] 06/17/2025 Ambulatory Chronic migraine without aura, intractable, with status migrainosus Chronic migraine without aura, intractable, with status migrainosus [facility] 05/26/2025 Care Team Organization Name Specialty Phone Email Start Date End Da te [facility]SE [facility]TE Primary Care 05/30/2025 07/16/2025 [facility] AUBREE LUX Primary Care 04/14/2025 [facility] Yvette Mccrary MD Primary Care 08/13/2023 06/01/2024 [facility] NULL Primary Care 04/18/2023 06/01/2024
--- OUTSIDE RECORDS SUMMARY | 2025-10-13 09:58 | XMS_ITS | Clinical Summary ---
Author Organization [address] [place] [address] [place] [phone] Phone Care Team Providers Care Plate Furnace Operator Name Role Phone Yvette Mccrary MD Primary [...] Active Active Problems No known active problems Surgical History Surgery Date Site/Laterality Comments TONSILLECTOMY ADENOIDECTOMY, BILATERAL MYRINGOTOMY AND TUBES PROCEDURE: CO TONSILLECTOMY & ADENOIDECTOMY <AGE 12 Medical History [...] 100 12/18/2024 5:47 PM EST Temperature 36.4 C (97.6 F) 12/18/2024 5:47 PM EST Respiratory Rate - - Oxygen Saturation 97% 12/18/2024 5:47 PM EST Inhaled Oxygen Concentration - - Weight 132 kg (291 lb 6.4 oz) 04/28/2024 8:20 AM EDT Height 166.4 cm (5' 5.5 ) 04/28/2024 8:20 AM EDT Body Mass Index 47.75 04/28/2024 8:20 AM EDT Plan of Treatment Health Maintenance Due Date Last Done Comments HPV Vaccines (1 - 3-dose series) 01/24/2015 Cervical Cancer Screening: Pap Smear 01/24/2021 HIV Screening 03/31/2023 Hepatitis C Screening 03/31/2023 Social Influencers of Health Screening 03/31/2023 Depression Screening 10/14/2024 COVID-19 Vaccine ( season) 2025 08/19/2021, 11/03/2020, 10/06/2020 Influenza Vaccine (#1) 2025 , 08/02/2021, 08/02/2020, Additional history exists Cholesterol Screening (Lipid Panel) 06/04/2028 06/04/2023 DTaP,Tdap,and Td Vaccines (8 - Td or Tdap) 05/16/2030 05/16/2020, 02/06/2011, 12/29/2004, Additional history exists RSV Immunization Adult Patients (1 - 1-dose 75+ series) 01/24/2075 Hepatitis B Vaccines Completed 2000, 2000, 2000 Pneumococcal Vaccine: Pediatrics (0 to 5 Years) and At-Risk Patients (6 to 49 Years) Completed 01/30/2001, 2000, 2000, Additional history exists HIB Vaccines Completed 04/28/2001, 07/14, 2000, Additional history exists MMR Vaccines Completed 01/28/2004, 01/30/2001 IPV Vaccines Completed 12/29/2004, 10/15, 2000, Additional history exists Varicella Vaccines Completed 02/03/2008, 01/30/2001 Hepatitis A Vaccines Completed 02/07/2012, 02/07/20 11 Meningococcal ACWY Vaccine Completed 03/20/2016, Meningococcal B [...] Maintenance Insurance [employer] - [place] [facility] Care Teams Plate Furnace Operator Relationship Specialty Start Date End Date Yvette Mccrary MD [address] [place] [id number] PCP - General 01/10/23
--- OUTSIDE RECORDS SUMMARY | 2025-10-13 09:58 | XMS_ITS | Encounter Summary ---
Author Organization [facility] Address [address] [place] [phone] Phone Care Team Providers Care House Admin Name Role Phone Unavailable Primary Care Provider Unavailabl e Encounter Details Date Type Department Care Team ([facility] st Contact Info) Description 03/02/2018 Conversion Encounter [facility] [address] [id number] Social History Tobacco Use Types Packs/Day Years [...]
--- OUTSIDE RECORDS SUMMARY | 2025-10-13 09:58 | XMS_ITS | Encounter Summary ---
Author Organization [facility] Address [address] [place] [address] Care Team Providers Care Home Care And Home Health Aides Teacher Name Role Phone Lanny Collins Primary Care Provider [phone] Encounter Details Date Type Department Care Team (Late st Contact Info) Description 05/25/2025 Scanned Document [facility] - [address] [phone] Neurology, Scan Social History Tobacco Use Types Packs/Day Years Used Date Smoking Tobacco: Never Assessed PHQ-2 Answer Date Recorded PHQ-2 Total Score 0 05/26/2025 [facility] [place] of Occupat ional Health - Occupational Stress [...] at this level? 120 min 05/26/2025 Comments Unknown Sex and Gender Information Value Date Recorded Sex Assigned at Not on file Legal Sex Female 8:54 PM EDT Gender Identity Not on file Sexual Orientation Not on file documented as of this encounter Functional Status * Question Answer Date of Assessment Author Feeling nervous, anxious, or on edge 0 05/26/2025 10:00 AM EDT Sweetie Painter MA Not being able to stop or co ntrol worrying 0 05/26/2025 10:00 AM EDT Sweetie Painter MA Worrying too much about diff erent things 0 05/26/2025 10:00 AM EDT Sweetie Painter MA Trouble relaxing 0 05/26/2025 10:00 AM EDT Sweetie Painter MA Being so restless that it is hard to sit still 0 05/26/2025 10:00 AM EDT Sweetie Painter MA Becoming easily annoyed or irritable 0 05/26/2025 10:00 AM EDT Sweetie Painter MA Feeling afraid as if somethi ng awful might happen 0 05/26/2025 10:00 AM EDT Sweetie Painter MA * Over the past 2 weeks, how often have you been bothered by any of the following problems? Question Answer Date of Assessment Author Patient Health Questionnaire -2 Score 0 05/26/2025 10:00 AM EDT Sweetie Painter MA * Question Answer Date of Assessment Author Patient Health Questionnaire -9 Score 0 05/26/2025 10:00 AM EDT Sweetie Painter MA * Over the last 2 weeks, how often have you been bothered by any of the following problems? Question Answer Date of Assessment Author EDDA-7 Total Score 0 05/26/2025 10:00 AM EDT Sweetie Painter MA * Question Answer Date of Assessment Author PHQ-2 Total Score 0 05/26/2025 10:00 AM TADT Sweetie Painter MA Little interest or pleasure in doing things Not at all 05/26/2025 10:00 AM EDT Sweetie Painter MA Feeling down, depressed, or hopeless Not at all 05/26/2025 10:00 AM EDT Sweetie Painter MA Trouble falling or staying asleep, or sleeping too much Not at all 05/26/2025 10:00 AM EDT Sweetie Painter MA Feeling tired or having nancy le energy Not at all 05/26/2025 10:00 AM EDT Sweetie Painter MA Poor appetite or overeating Not at all 05/26/2025 10 :00 AM EDT Sweetie Painter MA Feeling bad about yourself - or that you are a failure or have let yourself or your family down Not at all 05/26/2025 10:00 AM EDT Sweetie Painter MA Trouble concentrating on things, such as reading the newspaper or watching television Not at all 05/26/2025 10:00 AM EDT Sweetie Painter MA Moving or speaking so slowly that other people could have noticed? Or the opposite - being so fidgety or restless that you have been moving around a lot more than usual. Not at all 05/26/2025 10:00 AM EDT Sweetie Painter MA Thoughts that you would be better off or hurting yourself in some way Not at all 05/26/2025 10:00 AM EDT Sweetie Painter MA PHQ-9 Total Score 0 05/26/2025 10:00 AM EDT Sweetie Painter MA documented as of this encounter Plan of Treatment Upcoming Encounters Date Type Department Care Team (Late st Contact Info) Description 10/18/2025 9:30 AM EST Office Visit [facility] - [address] [phone] Shayy Bentley PA-C [address] [place] [phone] documented as of this encounter Visit Diagnoses Not on filedocumented in this encounter Care Teams Home Care And Home Health Aides Teacher Relationship Specialty Start Date End Date Lanny Collins PA [address] [place] [address] PCP - General Adult Health - PA/JOANNNP/LICENSED PSYCHOLOGIST/CONVENTION MANAGER 03/29/25 documented as of this encounter
--- OUTSIDE RECORDS SUMMARY | 2025-10-13 09:58 | XMS_ITS | Encounter Summary ---
Author Organization [facility] Address [address] [place] [address] Care Team Providers Care Irrigation Teacher Name Role Phone Lanny Collins Primary Care Provider [phone] Encounter Details Date Type Department Care Team (Late Contact Info) Description 06/02/2025 Scanned Document [address] [phone] Neurology, Scan Social History Tobacco Use Types Packs/Day Years Used Date Smoking Tobacco: Never Smokeless Tobacco: Never Alcohol Use Standard Drinks/Week Comments Yes 0 (1 standard drink = 0.6 oz pur e alcohol) Rarely PHQ-2 Answer Date Recorded PHQ-2 Total Score 0 05/26/2025 [facility] [place] of Occupat ional Health - Occupational Stress [...] Description 10/18/2025 9:30 AM EST Office Visit [address] [place] [address] Shayy Bentley PA-C 65 [facility] [address] [place] [phone] documented as of this encounter Visit Diagnoses Not on filedocumented in this encounter Care Teams Irrigation Teacher Relationship Specialty Start Date End Date Lanny Collins PA [address] [place] [address] PCP - General Adult Health - PA/APNP/METAL NUMERICAL CONTROL PROGRAMMER/SURGICAL SCRUB TECH 03/29/25 documented as of this encounter
--- OUTSIDE RECORDS SUMMARY | 2025-10-13 09:58 | XMS_ITS | Clinical Summary ---
Author Organization [facility] Address [address] [place] [id number] Phone Care Team Providers Care Set Up Worker Name Role Phone Unavailable Primary Care Provider [...] - 3-dose series) 01/24/2015 Influenza Vaccines (#1) 2025 COVID-19 Vaccine ( season) 2025 Hepatitis B Vaccines Completed 2000, 2000, 2000 [...]
== END 2025-10-13 10:32 | disposition home or self-care (01) ==
LOC: HO.HMCFM 09:33
PROVIDERS: PCP Physician Assistant; Visit Provider Physician Assistant
DX: R79.89 Other specified abnormal findings of blood chemistry (principal); K83.8 Other specified diseases of biliary tract; E66.01 Morbid (severe) obesity due to excess calories; Z68.42 Body mass index [BMI] 45.0-49.9, adult; M54.50 Low back pain, unspecified; M79.605 Pain in left leg